=== PATIENT | female | born 1930 | race African-American/Black ===

== ENCOUNTER 2016-06-29 14:18 | Emergency (ER) | payer OTHER, MEDICAID ==
[~2016-06-29] VITALS: Ht 170.2 cm; Wt 80.0 kg
[~2016-06-29 14:18] MED LIST: ACET325S8 PO; BEDSMIS4; BISA10SU8 PR; CARV3.125 PO; ECOT81TA2 PO; LISI20 PO; MAGN30S PO; NIFE1TAB85 PO; ROSU40 PO; WARF2.5 PO
[2016-06-29 14:21] VITALS: BP 143/93; PULSE 70; RESP 14; O2SAT 99
[2016-06-29 16:37] VITALS: BP 169/72; PULSE 63; RESP 18; O2SAT 99
[2016-06-29 18:00] VITALS: BP 168/72; PULSE 64; RESP 16; O2SAT 98
[2016-06-29] MEDS ORDERED: SODIUM CHLOR 0.9% 1000 ML INJ 1,000 ML IV SCH (18:10)
[2016-06-29] MEDS ORDERED: COUM5TAB PO (18:13)
[2016-06-29] MEDS ORDERED: ASPI1TAB91 PO (18:13)
[2016-06-29] MEDS ORDERED: MIRA33504 PO (18:13)
[2016-06-29] MEDS ORDERED: CARV6.25 PO (18:13)
[2016-06-29] MEDS ORDERED: COUM4TAB PO (18:13)
[2016-06-29] MEDS ORDERED: LISI-515 PO (18:13)
[2016-06-29] MEDS ORDERED: ROSU40 PO (18:13)
[2016-06-29] MEDS ORDERED: NIFE1TAB85 PO (18:13)
[2016-06-29] MEDS ORDERED: SODIUM CHLORIDE 0.9% FLUSH 5 ML FLUSH IVF PRN (18:15)
[2016-06-29] MEDS ORDERED: MORPHINE SULFATE 4 MG/ML INJ IV PUSH ONE (18:15)
[2016-06-29] MEDS ORDERED: ONDANSETRON HCL 4 MG/2 ML VIAL IVP ONE (18:15)
--- NOTE | 2016-06-29 19:02 | PD ---
HPI Chief Complaint: Abdominal Pain Time Seen by Provider: 17:59 Travel History International Travel<30 days: No Contact w/Intl Traveler<30days: No Traveled to known affect area: No History of Present Illness HPI Patient is a pleasant 85-year-old female with history of CVA with baseline left- sided weakness, hypertension, hyperlipidemia, history of 3 back surgeries performed in the 70s; presents to emergency room with her daughter and caregiver for evaluation of abdominal pain. Patient's daughter reports that patient has been having increased lower abdominal pain for the past few days. Reports that every time she goes to move patient, patient grimaces, reports that she has also noticed that patient has complaining of increased left-sided hip pain. Denies any recent falls or trauma. Reports no fevers or chills. Reports that patient has been eating and drinking like her normal self. Patient did have a normal bowel movement today as patient's daughter gave her MiraLAX today. Reports concern for possible urinary tract infection as patient' s urine appears dark. Reports the patient is a poor historian at baseline, reports increased concern for lower abdominal pain. PFSH Past Medical History Arthritis: No Asthma: No Autoimmune Disease: No Anxiety: No Depression: No Heart Rhythm Problems: No Cancer: No Cardiovascular Problems: Yes (cardiomyopathy, grade 1 diastolic dysfunction, hypercholesterolemia) High Cholesterol: Yes Chemotherapy: No Chest Pain: No Congestive Heart Failure: No COPD: No Cerebrovascular Accident: Yes Diabetes: No Diminished Hearing: No Endocrine: No Gastrointestinal Disorders: No Genitourinary: No Heparin Induced Thrombocytopen: No Hypertension: Yes Immune Disorder: No Implanted Vascular Access Dvce: No Kidney Stones: No Musculoskeletal: Yes Neurologic: No Psychiatric: No Reproductive: No Respiratory: No Radiation Therapy: No Renal Failure: No Sickle Cell Disease: No Sleep Apnea: No Thyroid Disease: No Tetanus Vaccination: Unknown ?: Not Past Surgical History Abdominal Surgery: No AICD: No Arteriovenous Shunt: No Cardiac Surgery: No Ear Surgery: No Endocrine Surgery: No Eye Surgery: No Genitourinary Surgery: No Gynecologic Surgery: No Insulin Pump: No Joint Replacement: No Neurologic Surgery: Yes (INJURY TO LOWER SPINE, BACK SX X 3) Oral Surgery: No Pacemaker: No Thoracic Surgery: No Other Surgery: Yes (BACK SURGERY 1968 AND 1973/ ) Social History Alcohol Use: No Tobacco Use: No Substance Use: No Allergies-Medications (Allergen,Severity, Reaction): Coded Allergies: No Known Allergies (Unverified , 06/29/16) Reported Meds & Prescriptions Reported Meds & Active Scripts Active Reported Miralax Powder (Polyethylene Glycol 3350 Powder) 17 Gm Powd 17 Gm PO DAILY PRN Mix and dissolve one measuring cap-ful (17 grams) in water or juice. Coumadin (Warfarin) 4 Mg Tab 4 Mg PO SUTUWETHSA Take 1 tablet (4mg) on Monday,Monday,Monday, and Monday Coumadin (Warfarin) 5 Mg Tab 5 Mg PO MOFR Take 1 tablet (5mg) on Monday and Monday Crestor (Rosuvastatin Calcium) 40 Mg Tab 40 Mg PO HS Procardia XL (Nifedipine) 30 Mg Tab 30 Mg PO DAILY Lisinopril 20 Mg Tab 20 Mg PO DAILY Coreg (Carvedilol) 6.25 Mg Tab 6.25 Mg PO BID Aspirin Adult Low Strength (Aspirin) 81 Mg Tabdr 81 Mg PO DAILY Review of Systems General / Constitutional: No: Fever Eyes: No: Visual changes HENT: No: Headaches Cardiovascular: No: Chest Pain or Discomfort Respiratory: No: Shortness of Breath Gastrointestinal: Positive: Abdominal Pain, No: Nausea, Vomiting, Diarrhea Genitourinary: No: Urgency, Frequency, Dysuria Musculoskeletal: Positive: Pain (left-sided hip pain) Skin: No Rash Neurologic: No: Weakness Psychiatric: No: Depression Endocrine: No: Polydipsia Hematologic/Lymphatic: No: Easy Bruising Physical Exam Exam Limitations: Poor Historian Narrative GENERAL: No acute distress, nontoxic SKIN: Warm and dry. HEAD: Atraumatic. Normocephalic. EYES: No injection or drainage. ENT: No nasal bleeding or discharge. Mucous membranes pink and moist. NECK: Trachea midline. No JVD. CARDIOVASCULAR: Regular rate and rhythm. No murmur appreciated. RESPIRATORY: No accessory muscle use. Clear to auscultation. Breath sounds equal bilaterally. GASTROINTESTINAL: Abdomen soft, patient with increased tenderness to lower abdomen with no rebound or guarding on exam MUSCULOSKELETAL: No obvious deformities. No clubbing. No cyanosis. No edema. Patient with normal range of motion to left hip as well as right hip, no obvious deformities or pain with range of motion NEUROLOGICAL: Patient with left-sided deficits at baseline Data Data Last Documented VS Vital Signs Date Time Temp Pulse Resp B/P Pulse Ox O2 Delivery O2 Flow Rate FiO2 06/29/16 20:59 83 18 175/77 100 Room Air Orders Complete Blood Count With Diff (06/29/16 18:10) Comprehensive Metabolic Panel (06/29/16 18:10) Lipase (06/29/16 18:10) Prothrombin Time / Inr (Pt) (06/29/16 18:10) Act Partial Throm Time (Ptt) (06/29/16 18:10) Urinalysis - C+S If Indicated (06/29/16 18:10) Ct Abd/Pel W Iv Contrast(Rout) (06/29/16 18:10) Iv Access Insert/Monitor (06/29/16 18:10) NPO (06/29/16 18:10) Morphine Inj (Morphine Inj) (06/29/16 18:15) Ondansetron Inj (Zofran Inj) (06/29/16 18:15) Sodium Chlor 0.9% 1000 Ml Inj (Ns 1000 M (06/29/16 18:10) Sodium Chloride 0.9% Flush (Ns Flush) (06/29/16 18:15) Chest, Single Ap (06/29/16 18:10) Hip, Uni(Ap&Lat) W Ap Pelvis (06/29/16 ) Urine Culture (06/29/16 18:20) Ceftriaxone Inj (Rocephin Inj) (06/29/16 20:15) Iohexol 350 Inj (Omnipaque 350 Inj) (06/29/16 20:50) Labs Laboratory Tests Test 06/29/16 18:20 White Blood Count 8.6 TH/MM3 Red Blood Count 4.64 MIL/MM3 Hemoglobin 12.4 GM/DL Hematocrit 38.2 % Mean Corpuscular Volume 82.3 FL Mean Corpuscular Hemoglobin 26.7 PG Mean Corpuscular Hemoglobin 32.5 % Concent Red Cell Distribution Width 15.1 % Platelet Count 222 TH/MM3 Mean Platelet Volume 9.1 FL Neutrophils (%) (Auto) 66.6 % Lymphocytes (%) (Auto) 20.1 % Monocytes (%) (Auto) 10.8 % Eosinophils (%) (Auto) 1.9 % Basophils (%) (Auto) 0.6 % Neutrophils # (Auto) 5.7 TH/MM3 Lymphocytes # (Auto) 1.7 TH/MM3 Monocytes # (Auto) 0.9 TH/MM3 Eosinophils # (Auto) 0.2 TH/MM3 Basophils # (Auto) 0.1 TH/MM3 CBC Comment DIFF FINAL Differential Comment Prothrombin Time 30.7 SEC Prothromb Time International 2.7 RATIO Ratio Activated Partial 43.9 SEC Thromboplast Time Urine Color YELLOW Urine Turbidity HAZY Urine pH 6.0 Urine Specific [place] 1.030 Urine Protein 30 mg/dL Urine Glucose (UA) NEG mg/dL Urine Ketones NEG mg/dL Urine Occult Blood NEG Urine Nitrite NEG Urine Bilirubin NEG Urine Urobilinogen 2.0 MG/DL Urine Leukocyte Esterase TRACE Urine RBC 3 /hpf Urine WBC 8 /hpf Urine Squamous Epithelial 15 /hpf Cells Urine Hyaline Casts 1 /lpf Urine Mucus FEW /lpf Microscopic Urinalysis Comment CULTURE INDICATED Sodium Level 143 MEQ/L Potassium Level 4.2 MEQ/L Chloride Level 108 MEQ/L Carbon Dioxide Level 28.0 MEQ/L Anion Gap 7 MEQ/L Blood Urea Nitrogen 15 MG/DL Creatinine 0.67 MG/DL Estimat Glomerular Filtration 102 ML/MIN Rate Random Glucose 74 MG/DL Calcium Level 8.4 MG/DL Total Bilirubin 0.4 MG/DL Aspartate Amino Transf 26 U/L (AST/SGOT) Alanine Aminotransferase 21 U/L (ALT/SGPT) Alkaline Phosphatase 81 U/L Total Protein 6.9 GM/DL Albumin 2.9 GM/DL Lipase 176 U/L [facility] Medical Decision Making Medical Screen Exam Complete: Yes Emergency Medical Condition: Yes Interpretation(s) Vital Signs Date Time Temp Pulse Resp B/P Pulse Ox O2 Delivery O2 Flow Rate FiO2 06/29/16 18:00 64 16 168/72 98 Room Air 06/29/16 16:37 63 18 169/72 99 Room Air 06/29/16 14:21 70 14 143/93 99 Room Air Differential Diagnosis Colitis, appendicitis, diverticulitis, UTI, hip fracture, dehydration, electrolyte abnormality Narrative Course Patient is an 85-year-old female who presents to emergency room with her daughter and caregiver with complaints of lower abdominal pain which has been ongoing for the past few days. Reports that patient has been grimacing every time she goes to move patient. Unable to verbalize how she feels. Vital signs are stable at this time. Labs as well as UA and CAT scan of the abdomen and pelvis ordered for further evaluation of symptoms. X-ray of the hip ordered as daughter reports that patient has been complaining of left-sided hip pain. Plan to give patient IV fluids and monitor patient Patient reevaluated, patient comfortable at this time. I reviewed all labs and all studies with patient and her daughter. Patient does have a urinary tract infection, will give a dose of IV Rocephin at this time. CT of the abdomen and pelvis pending. WBC 8.6 Hemoglobin 12.4 Hematocrit 38.2 Platelets 222 Sodium 143 Chloride 108 Potassium 4.2 Carbon dioxide 28 BUN 15 Creatinine 0.67 Lipase 176 PTT 30.7 INR 2.7 UA: Hazy urine, positive for protein, positive for trace leuk esterase, 8 white blood cells, 3 red blood cells, 15 epithelial cells Last Impressions Chest X-Ray 06/29/16 1810 Signed Impressions: Service Date/Time: Wednesday, June 29, 2016 19:04 - CONCLUSION: No acute disease. Yannick Sun MD Hip and Pelvis X-Ray 06/29/16 0000 Signed Impressions: Service Date/Time: Wednesday, June 29, 2016 19:04 - CONCLUSION: Mild osteoarthritis of each hip. No acute bony abnormality. Yannick Sun MD CT of the abdomen and pelvis reviewed with patient and her daughter. Copies of patient's studies were given to her daughter and patient and all incidental findings were reviewed. Patient with urinary tract infection, discussed signs and symptoms of when to return to the emergency room. Patient will follow up with cultures from today. Understands need to follow up with primary care doctor first thing in the morning. She will bring a copy of her studies to her doctor's office for follow-up Diagnosis Primary Impression: UTI (urinary tract infection) Qualified Code: N30.01 - Acute cystitis with hematuria Additional Impressions: Abdominal pain Qualified Code: R10.30 - Lower abdominal pain Osteoarthritis Qualified Code: M16.12 - Osteoarthritis of left hip, unspecified osteoarthritis type Diverticulosis Renal cyst Patient Instructions: General Instructions Additional Instructions: Please provide patient with a copy of her lab work and studies at discharge Please follow-up with your primary care doctor Please return to emergency room as needed Please take all antibiotics until completion, please follow up with cultures from today Med/Other Pt SpecificInfo: Prescription(s) given Scripts Nitrofurantoin Monohydrate Macrocrystals (Macrobid)100 Mg [id number] Mg PO BID 10 Days Ref 0 Prov:Edwige Fry DO 06/29/16 Disposition: 01 DISCHARGE HOME Condition: Stable Edwige Fry DO Jun 29, 2016 19:02
[2016-06-29 19:18] LABS: AUTOMATED NEUTROPHIL # 5.7 TH/MM3 (1.8-7.7); BASOPHIL # 0.1 TH/MM3 (0-0.2); BASOPHIL % 0.6 % (0.0-2.0); EOSINOPHIL # 0.2 TH/MM3 (0-0.4); EOSINOPHIL % 1.9 % (0.0-4.0); HEMATOCRIT 38.2 % (35.0-46.0); HEMO FLAGS DIFF FINAL; LYMPH % 20.1 % (9.0-44.0); LYMPHOCYTE # 1.7 TH/MM3 (1.0-4.8); MEAN CELL VOLUME 82.3 FL (80.0-100.0); MEAN CORPUSCULAR HEMOGLOBIN 26.7 PG (27.0-34.0); MEAN CORPUSCULAR HGB CONC 32.5 % (32.0-36.0); MONO % 10.8 % (0.0-8.0); NEUT % 66.6 % (16.0-70.0); PLATELET COUNT 222 TH/MM3 (150-450); RED BLOOD COUNT 4.64 MIL/MM3 (4.00-5.30); RED CELL DISTRIBUTION WIDTH 15.1 % (11.6-17.2); WHITE BLOOD COUNT 8.6 TH/MM3 (4.0-11.0)
[2016-06-29 19:23] LABS: BLOOD, URINE NEG (NEG); COMMENT (UR) CULTURE INDICATED; CULTURE IF INDICATED CULTURE INDICATED; GLUCOSE,URINE NEG (NEG); HYALINE CAST, URINE 1 /lpf (RARE); KETONE, URINE NEG (NEG); MUCUS URINE FEW /lpf (OCC); NITRITE,URINE NEG (NEG); SQUAMOUS EPITHELIAL CELL URINE 15 /hpf (0-5); URINE COLOR YELLOW (YELLW/STRAW)
[2016-06-29 19:31] LABS: APTT (PATIENT) 43.9 SEC (24.3-30.1); INTERNATIONAL NORMALIZED RATIO 2.7 RATIO; PROTHROMBIN TIME - PATIENT 30.7 SEC (9.8-11.6)
--- NOTE | 2016-06-29 19:42 | RADRPT ---
EXAM DATE/TIME: 06/29/2016 19:04 [facility] COMPARISON: No previous studies available for comparison. INDICATIONS : Left hip pain from unknown injury. MEDICAL HISTORY : Stroke. Arthritis. SURGICAL HISTORY : None. ENCOUNTER: Initial ACUITY: 1 day PAIN SCORE: 6/10 LOCATION: Left hip FINDINGS: Examination of the left hip was performed with AP Pelvis. The mild degenerative change left hip. No fracture. Enthesopathy is seen bilaterally. The acetabulum is grossly intact. CONCLUSION: Mild osteoarthritis of each hip. No acute bony abnormality. Yannick Sun MD on June 29, 2016 at 19:39 Board Certified Radiologist. This report was verified electronically.
--- NOTE | 2016-06-29 19:42 | RADRPT ---
EXAM DATE/TIME: 06/29/2016 19:04 [facility] COMPARISON: CHEST SINGLE AP, July 09, 2014, 10:08. INDICATIONS : Short of breath. MEDICAL HISTORY : Stroke. SURGICAL HISTORY : None. ENCOUNTER: Initial ACUITY: 1 day PAIN SCORE: 0/10 LOCATION: Bilateral chest FINDINGS: A single view of the chest demonstrates the lungs to be symmetrically aerated without evidence of mas s, infiltrate or effusion. The cardiomediastinal contours are unremarkable. Osseous structures are intact. CONCLUSION: No acute disease. Yannick Sun MD on June 29, 2016 at 19:40 Board Certified Radiologist. This report was verified electronically.
[2016-06-29 19:44] LABS: ANION GAP 7 MEQ/L (5-15); AST (GOT) 26 U/L (15-37); BLOOD UREA NITROGEN 15 MG/DL (7-18); CHLORIDE 108 MEQ/L (98-107); GLOMERULAR FILTRATION RATE 102 ML/MIN (>89); POTASSIUM 4.2 MEQ/L (3.5-5.1); SODIUM (NA) 143 MEQ/L (136-145)
[2016-06-29 19:47] LABS: ALKALINE PHOSPHATASE 81 U/L (45-117); ALT (GPT) 21 U/L (10-53); TOTAL BILIRUBIN ADULT 0.4 MG/DL (0.2-1.0)
[2016-06-29] MEDS ORDERED: cefTRIAXone INJ 1,000 MG in SODIUM CHLORIDE 0.9% INJ 100 ML IV ONE (20:15)
[2016-06-29] MEDS ORDERED: IOHEXOL 350 MG/ML 10 ML VIAL (for RAD DIAG) IV ONE (20:50)
[2016-06-29 20:59] VITALS: BP 175/77; PULSE 83; RESP 18; O2SAT 100
--- NOTE | 2016-06-29 21:03 | RADRPT ---
EXAM DATE/TIME: 06/29/2016 20:29 [facility] COMPARISON: No previous studies available for comparison. INDICATIONS : Lower abdomen pain for two days. IV CONTRAST: 90 cc Omnipaque 350 (iohexol) IV ORAL CONTRAST: No oral contrast ingested. RADIATION DOSE: 13.48 CTDIvol (mGy) MEDICAL HISTORY : Stroke. Hypertension. SURGICAL HISTORY : None. ENCOUNTER: Initial ACUITY: 2 days PAIN SCALE: 7/10 LOCATION: Bilateral lower quadrant TECHNIQUE: Volumetric scanning of the abdomen and pelvis was performed. Using automated exposure control and ad justment of the mA and/or kV according to patient size, radiation dose was kept as low as reasonably achievable to obtain optimal diagnostic quality images. FINDINGS: LOWER LUNGS: The visualized lower lungs are clear. LIVER: Homogeneous density without lesion. There is no dilation of the biliary tree. No calcified gallston es. SPLEEN: Normal size without lesion. PANCREAS: Within normal limits. KIDNEYS: Normal in size and shape. There is no mass, stone or hydronephrosis. Multiple left-sided renal cysts . ADRENAL GLANDS: Within normal limits. VASCULAR: There is no aortic aneurysm. Scattered atherosclerotic changes. BOWEL/MESENTERY: Scattered diverticulosis. Normal appendix. There is no free intraperitoneal air or fluid. ABDOMINAL WALL: Bulging and anterior abdominal wall. A small fat-containing umbilical hernia.. RETROPERITONEUM: There is no lymphadenopathy. BLADDER: No wall thickening or mass. REPRODUCTIVE: Uterus slightly prominent. INGUINAL: There is no lymphadenopathy or hernia. MUSCULOSKELETAL: Postsurgical changes lower lumbar spine and lumbosacral junction. CONCLUSION: 1. Scattered diverticulosis without diverticulitis. 2. Multiple left-sided renal cysts. 3. Uterus is slightly prominent may be related to fibroids. Yannick Sun MD on June 29, 2016 at 20:58 Board Certified Radiologist. This report was verified electronically.
[2016-06-29] MEDS ORDERED: MACR100C2 PO (21:23)
[2016-06-29] MEDS ORDERED: ACETAMINOPHEN 325 MG TAB PO ONE (22:00)
[2016-06-29 22:18] VITALS: BP 167/80
== END 2016-06-29 22:19 | disposition home or self-care (01) ==
LOC: NEPA 14:18
DX: N30.01 Acute cystitis with hematuria (principal); R10.30 Lower abdominal pain, unspecified; M16.12 Unilateral primary osteoarthritis, left hip; K57.90 Diverticulosis of intestine, part unspecified, without perforation or abscess without bleeding; N28.1 Cyst of kidney, acquired; I10 Essential (primary) hypertension; E78.5 Hyperlipidemia, unspecified; Z86.79 Personal history of other diseases of the circulatory system; Z86.69 Personal history of other diseases of the nervous system and sense organs; Z87.39 Personal history of other diseases of the musculoskeletal system and connective tissue
CPT/HCPCS: 71010; 73502; 74177; 80053; 81001; 83690; 85025; 85610; 85730; 87086; 96374; 99284; J0696; J7030; Q9967

== ENCOUNTER 2016-09-23 12:06 | Observation (INO) | payer OTHER, MEDICAID ==
[~2016-09-23] VITALS: Ht 170.2 cm; Wt 75.0 kg
[2016-09-23] VITALS (7 sets, daily range): BP systolic 140–176; BP diastolic 68–118; PULSE 75–85; RESP 16–20; TEMP 98.6–100.5; O2SAT 96–100
[~2016-09-23 12:06] MED LIST changes: -ACET325S8 PO; +ASPI1TAB91 PO; -BEDSMIS4; -BISA10SU8 PR; -CARV3.125 PO; +CARV6.25 PO; +COUM4TAB PO; +COUM5TAB PO; -ECOT81TA2 PO; +LISI-515 PO; -LISI20 PO; +MACR100C2 PO; -MAGN30S PO; +MIRA33504 PO; -WARF2.5 PO
[2016-09-23] MEDS ORDERED: SODIUM CHLORIDE 0.9% FLUSH 10 ML FLUSH IVF PRN (12:30)
[2016-09-23 12:38] LABS: AUTOMATED NEUTROPHIL # 8.8 TH/MM3 (1.8-7.7); BASOPHIL # 0.1 TH/MM3 (0-0.2); BASOPHIL % 0.6 % (0.0-2.0); EOSINOPHIL # 0.1 TH/MM3 (0-0.4); EOSINOPHIL % 0.8 % (0.0-4.0); HEMATOCRIT 41.5 % (35.0-46.0); LYMPHOCYTE # 1.4 TH/MM3 (1.0-4.8); MEAN CORPUSCULAR HEMOGLOBIN 26.2 PG (27.0-34.0); MEAN CORPUSCULAR HGB CONC 32.4 % (32.0-36.0); MONO % 8.2 % (0.0-8.0); NEUT % 78.4 % (16.0-70.0); PLATELET COUNT 265 TH/MM3 (150-450); RED BLOOD COUNT 5.12 MIL/MM3 (4.00-5.30); RED CELL DISTRIBUTION WIDTH 15.3 % (11.6-17.2); WHITE BLOOD COUNT 11.3 TH/MM3 (4.0-11.0)
[2016-09-23 12:45] LABS: HEMO FLAGS AUTO DIFF
--- NOTE | 2016-09-23 12:59 | RADRPT ---
EXAM DATE/TIME: 09/23/2016 12:35 [facility] COMPARISON: CHEST SINGLE AP, June 29, 2016, 19:04. INDICATIONS : Patient was vomiting this morning and has abdominal pain. MEDICAL HISTORY : Stroke. Arthritis. SURGICAL HISTORY : None. ENCOUNTER: Initial ACUITY: 1 day PAIN SCORE: 0/10 LOCATION: Bilateral chest FINDINGS: A single view of the chest demonstrates the lungs to be symmetrically aerated without evidence of mas s, infiltrate or effusion. The heart size is borderline enlarged. Osseous structures are intact. CONCLUSION: No acute disease. Stevo Díaz MD on September 23, 2016 at 12:57 Board Certified Radiologist. This report was verified electronically.
[2016-09-23 13:05] LABS: POTASSIUM 4.2 MEQ/L (3.5-5.1)
[2016-09-23 13:12] LABS: SCAN/DIFF AUTO DIFF CONFIRMED
--- NOTE | 2016-09-23 14:34 | PD ---
HPI Chief Complaint: Syncope/Near-Syncope Time Seen by Provider: 12:11 Travel History International Travel<30 days: No Contact w/Intl Traveler<30days: No Traveled to known affect area: No History of Present Illness HPI 85-year-old female who arrives by EMS. She vomited at her GROUP HOME and then became unresponsive per EMS which. This lasted a few seconds. She woke up and was alert and oriented 3 with nausea however was otherwise without complaint per EMS. In the ER she offers no complaint however notes it is very atypical for her to vomit. No CP/SOB. No fever/cough. PFSH Past Medical History Arthritis: No Asthma: No Autoimmune Disease: No Anxiety: No Depression: No Heart Rhythm Problems: No Cancer: No Cardiovascular Problems: Yes (cardiomyopathy, grade 1 diastolic dysfunction, hypercholesterolemia) High Cholesterol: Yes Chemotherapy: No Chest Pain: No Congestive Heart Failure: No COPD: No Cerebrovascular Accident: Yes Diabetes: No Diminished Hearing: No Endocrine: No Gastrointestinal Disorders: No Genitourinary: No Heparin Induced Thrombocytopen: No Hypertension: Yes Immune Disorder: No Implanted Vascular Access Dvce: No Kidney Stones: No Musculoskeletal: Yes Neurologic: No Psychiatric: No Reproductive: No Respiratory: No Radiation Therapy: No Renal Failure: No Sickle Cell Disease: No Sleep Apnea: No Thyroid Disease: No ?: Not Past Surgical History Abdominal Surgery: No AICD: No Arteriovenous Shunt: No Cardiac Surgery: No Ear Surgery: No Endocrine Surgery: No Eye Surgery: No Genitourinary Surgery: No Gynecologic Surgery: No Insulin Pump: No Joint Replacement: No Neurologic Surgery: Yes (INJURY TO LOWER SPINE, BACK SX X 3) Oral Surgery: No Pacemaker: No Thoracic Surgery: No Other Surgery: Yes (BACK SURGERY 1969 AND 2ND 1973/ 'S) Social History Alcohol Use: No Tobacco Use: No Substance Use: No Allergies-Medications (Allergen,Severity, Reaction): Coded Allergies: No Known Allergies (Unverified , 06/29/16) Reported Meds & Prescriptions Reported Meds & Active Scripts Active Macrobid (Nitrofurantoin Monoh/Nitrofur Macro) 100 Mg Cap 100 Mg PO BID 10 Days Reported Miralax Powder (Polyethylene Glycol 3350 Powder) 17 Gm Powd 17 Gm PO DAILY PRN Mix and dissolve one measuring cap-ful (17 grams) in water or juice. Coumadin (Warfarin) 4 Mg Tab 4 Mg PO SUTUWETHSA Take 1 tablet (4mg) on Monday,Monday,Monday, and Monday Coumadin (Warfarin) 5 Mg Tab 5 Mg PO MOFR Take 1 tablet (5mg) on Monday and Monday Crestor (Rosuvastatin Calcium) 40 Mg Tab 40 Mg PO HS Procardia XL (Nifedipine) 30 Mg Tab 30 Mg PO DAILY Lisinopril 20 Mg Tab 20 Mg PO DAILY Coreg (Carvedilol) 6.25 Mg Tab 6.25 Mg PO BID Aspirin Adult Low Strength (Aspirin) 81 Mg Tabdr 81 Mg PO DAILY Review of Systems Except as stated in HPI: all other systems reviewed are Neg Physical Exam Narrative GENERAL: 85 yo F, WNWD, pleasant NAD SKIN: Warm and dry. HEAD: Atraumatic. Normocephalic. EYES: Pupils equal and round. No scleral icterus. No injection or drainage. ENT: No nasal bleeding or discharge. Mucous membranes pink and moist. NECK: Trachea midline. No JVD. CARDIOVASCULAR: Regular rate and rhythm. RESPIRATORY: No accessory muscle use. Clear to auscultation. Breath sounds equal bilaterally. GASTROINTESTINAL: Abdomen soft, non-tender, nondistended. Hepatic and splenic margins not palpable. MUSCULOSKELETAL: Extremities without clubbing, cyanosis, or edema. No obvious deformities. NEUROLOGICAL: Awake and alert. No obvious cranial nerve deficits. Motor grossly within normal limits. Chronic LUE/LLE weakness. PSYCHIATRIC: Appropriate mood and affect; insight and judgment normal. Data Data Last Documented VS Vital Signs Date Time Temp Pulse Resp B/P Pulse Ox O2 Delivery O2 Flow Rate FiO2 09/23/16 13:52 77 16 176/76 100 09/23/16 12:17 98.6 VS reviewed Orders Electrocardiogram (09/23/16 12:20) Basic Metabolic Panel (Bmp) (09/23/16 12:20) Complete Blood Count With Diff (09/23/16 12:20) Urinalysis - C+S If Indicated (09/23/16 12:20) Ecg Monitoring (09/23/16 12:20) Iv Access Insert/Monitor (09/23/16 12:20) Oximetry (09/23/16 12:20) Sodium Chloride 0.9% Flush (Ns Flush) (09/23/16 12:30) B-Type Natriuretic Peptide (09/23/16 12:20) Troponin I (09/23/16 12:20) Chest, Single Ap (09/23/16 12:20) Ct Brain W/O Iv Contrast(Rout) (09/23/16 15:01) Admit Order (Ed Use Only) (09/23/16 15:01) Labs Laboratory Tests Test 09/23/16 12:30 White Blood Count 11.3 TH/MM3 Red Blood Count 5.12 MIL/MM3 Hemoglobin 13.4 GM/DL Hematocrit 41.5 % Mean Corpuscular Volume 81.0 FL Mean Corpuscular Hemoglobin 26.2 PG Mean Corpuscular Hemoglobin 32.4 % Concent Red Cell Distribution Width 15.3 % Platelet Count 265 TH/MM3 Mean Platelet Volume 8.4 FL Neutrophils (%) (Auto) 78.4 % Lymphocytes (%) (Auto) 12.0 % Monocytes (%) (Auto) 8.2 % Eosinophils (%) (Auto) 0.8 % Basophils (%) (Auto) 0.6 % Neutrophils # (Auto) 8.8 TH/MM3 Lymphocytes # (Auto) 1.4 TH/MM3 Monocytes # (Auto) 0.9 TH/MM3 Eosinophils # (Auto) 0.1 TH/MM3 Basophils # (Auto) 0.1 TH/MM3 CBC Comment AUTO DIFF Differential Comment AUTO DIFF CONFIRMED Sodium Level 140 MEQ/L Potassium Level 4.2 MEQ/L Chloride Level 106 MEQ/L Carbon Dioxide Level 28.0 MEQ/L Anion Gap 6 MEQ/L Blood Urea Nitrogen 10 MG/DL Creatinine 0.83 MG/DL Estimat Glomerular Filtration 79 ML/MIN Rate Random Glucose 139 MG/DL Calcium Level 8.6 MG/DL Troponin I 0.25 NG/ML B-Type Natriuretic Peptide 190 PG/ML MDM Medical Decision Making Medical Screen Exam Complete: Yes Emergency Medical Condition: Yes Medical Record Reviewed: Yes Differential Diagnosis Syncope, arrhythmia, UTI, NSTEMI/ACS, electrolyte imbalance Narrative Course CBC & BMP Diagram 09/23/16 12:30 Tn 0.25 BNP 190 EKG: sinus 77, LBBB stable compared to 07/06 Admission for serial enzymes. D/w Dr Bingham. Head CT added at time of admission per her request. Diagnosis Primary Impression: Syncope Qualified Code: R55 - Syncope, unspecified syncope type Additional Impression: Elevated troponin Admitting Information Admitting Physician Requests: Observation Agustin Hernandez MD Sep 23, 2016 14:34
[2016-09-23] MEDS ORDERED: NALOXONE HCL 0.4 MG/ML AMP IV PRN (15:45)
[2016-09-23] MEDS ORDERED: BISACODYL 10 MG SUPP RECTAL PRN (15:45)
[2016-09-23] MEDS ORDERED: ONDANSETRON HCL 4 MG/2 ML VIAL IVP PRN (15:45)
[2016-09-23] MEDS ORDERED: LACTULOSE SYRUP 20 GM/30 ML CUP PO PRN (15:45)
[2016-09-23] MEDS ORDERED: SENNOSIDES 8.6 MG TAB PO PRN (15:45)
[2016-09-23] MEDS ORDERED: MAGNESIUM HYDROXIDE SUSP 30 ML CUP PO PRN (15:45)
[2016-09-23] MEDS ORDERED: SODIUM CHLORIDE 0.9% FLUSH 10 ML FLUSH IV FLUSH PRN (15:45)
--- NOTE | 2016-09-23 16:38 | RADRPT ---
EXAM DATE/TIME: 09/23/2016 16:00 [facility] COMPARISON: CT BRAIN W/O CONTRAST, August 03, 2014, 17:04. INDICATIONS : Evaluate for syncope. RADIATION DOSE: 56.53 CTDIvol (mGy) MEDICAL HISTORY : Cardiovascular disease. Hypertension. SURGICAL HISTORY : Fusion, lumbar. ENCOUNTER: Initial ACUITY: 1 day PAIN SCALE: 3/10 LOCATION: Bilateral cranial TECHNIQUE: Multiple contiguous axial images were obtained of the head. Using automated exposure control and adj ustment of the mA and/or kV according to patient size, radiation dose was kept as low as reasonably a chievable to obtain optimal diagnostic quality images. FINDINGS: CEREBRUM: Coarse calcification is again identified in the left temporal lobe unchanged from 2015. No evidence o f acute intracranial hemorrhage, mass effect, or acute infarct. POSTERIOR FOSSA: The cerebellum and brainstem are intact. The 4th ventricle is midline. The cerebellopontine angle i s unremarkable. EXTRACRANIAL: The visualized portion of the orbits is intact. SKULL: The calvaria is intact. No evidence of skull fracture. CONCLUSION: Chronic left temporal lobe calcification. No acute intracranial findings. Rohit Mays MD on September 23, 2016 at 16:35 Board Certified Radiologist. This report was verified electronically.
[2016-09-23] MEDS ORDERED: ASPIRIN 325 MG TAB PO ONE (17:15)
--- NOTE | 2016-09-23 17:22 | HHI.HP ---
[facility] Unknown Admission Diagnosis Syncope, Elevated Tn Diagnoses: (1) TIA (transient ischemic attack) Diagnosis: Principal (2) Altered mental status Diagnosis: Principal Travel History International Travel<30 Days: No Contact w/Intl Traveler <30 Da: No Traveled to Known Affected Are: No History of Present Illness Mrs. Dixon is an 85-year-old female. She had 3 episodes today of altered mental status. 2 of these episodes were associated with nausea and vomiting. All the episodes had decreased ability to speak and weakness of the right side. She has a history of CVA and has a chronic left hemiplegia secondary to that. Additionally today she has some nasal bleeding. When seen in the ER she has returned to her baseline. Her baseline is not ambulatory. She is on Coumadin at baseline. Additional finding tonight isn't elevated troponin. She does not complain of any headache. Nosebleed has stopped. No nausea reported. She does not appear postictal when I see her. This does not appear to be a syncopal episode. More suspicious that she may have had a TIA or atypical seizure. No other neurological findings are reported. No visual changes, no change in her left hemiplegia, no vertigo. Review of Systems Constitutional: DENIES: Fatigue, Fever, Weight gain, Weight loss, Chills Eyes: DENIES: Blurred vision, Diplopia Respiratory: DENIES: Cough, Wheezing, Shortness of breath Cardiovascular: DENIES: Chest pain, Palpitations, Syncope Gastrointestinal: COMPLAINS OF: Nausea, Vomiting, DENIES: Abdominal pain, Black stools, Bloody stools, Diarrhea Musculoskeletal: DENIES: Joint pain, Muscle aches, Stiffness Integumentary: DENIES: Abnormal pigmentation Hematologic/lymphatic: DENIES: Bruising Immunologic/allergic: DENIES: Eczema Neurologic: DENIES: Abnormal gait, Headache Psychiatric: DENIES: Anxiety, Confusion Past Family Social History Past Medical History CVA Hypertension Hyperlipidemia Nonspecified cardiac disease Past Surgical History Back fusion 3 Reported Medications Reported Meds & Active Scripts Active Macrobid (Nitrofurantoin Monoh/Nitrofur Macro) 100 Mg Cap 100 Mg PO BID 10 Days Reported Miralax Powder (Polyethylene Glycol 3350 Powder) 17 Gm Powd 17 Gm PO DAILY PRN Mix and dissolve one measuring cap-ful (17 grams) in water or juice. Coumadin (Warfarin) 4 Mg Tab 4 Mg PO SUTUWETHSA Take 1 tablet (4mg) on Monday,Monday,Monday, and Monday Coumadin (Warfarin) 5 Mg Tab 5 Mg PO MOFR Take 1 tablet (5mg) on Monday and Monday Crestor (Rosuvastatin Calcium) 40 Mg Tab 40 Mg PO HS Procardia XL (Nifedipine) 30 Mg Tab 30 Mg PO DAILY Lisinopril 20 Mg Tab 20 Mg PO DAILY Coreg (Carvedilol) 6.25 Mg Tab 6.25 Mg PO BID Aspirin Adult Low Strength (Aspirin) 81 Mg Tabdr 81 Mg PO DAILY Allergies: Coded Allergies: No Known Allergies (Unverified , 06/29/16) Family History No disease in mother father Social History No history of alcohol, nicotine, or drug abuse. Patient lives with her daughter who is her card maker. Physical Exam Vital Signs Vital Signs Date Time Temp Pulse Resp B/P Pulse Ox O2 Delivery O2 Flow Rate FiO2 09/23/16 17:03 77 16 163/75 96 Room Air 09/23/16 13:52 77 16 176/76 100 09/23/16 13:51 75 16 176/77 09/23/16 12:17 98.6 85 16 174/118 Physical Exam GENERAL: NAD, A&Ox3 SKIN: Warm and dry. HEAD: Normocephalic. EYES: No scleral icterus. No injection or drainage. NECK: Supple, trachea midline. No JVD or lymphadenopathy. CARDIOVASCULAR: Regular rate and rhythm without murmurs, gallops, or rubs. RESPIRATORY: Breath sounds equal bilaterally. No accessory muscle use. GASTROINTESTINAL: Abdomen soft, non-tender, nondistended. MUSCULOSKELETAL: No cyanosis, or edema. NEURO: Chronic left hemiplegia is present. No deficit noted on right side. Laboratory Laboratory Tests Test 09/23/16 12:30 White Blood Count 11.3 Red Blood Count 5.12 Hemoglobin 13.4 Hematocrit 41.5 Mean Corpuscular Volume 81.0 Mean Corpuscular Hemoglobin 26.2 Mean Corpuscular Hemoglobin 32.4 Concent Red Cell Distribution Width 15.3 Platelet Count 265 Mean Platelet Volume 8.4 Neutrophils (%) (Auto) 78.4 Lymphocytes (%) (Auto) 12.0 Monocytes (%) (Auto) 8.2 Eosinophils (%) (Auto) 0.8 Basophils (%) (Auto) 0.6 Neutrophils # (Auto) 8.8 Lymphocytes # (Auto) 1.4 Monocytes # (Auto) 0.9 Eosinophils # (Auto) 0.1 Basophils # (Auto) 0.1 CBC Comment AUTO DIFF Differential Comment AUTO DIFF CONFIRMED Sodium Level 140 Potassium Level 4.2 Chloride Level 106 Carbon Dioxide Level 28.0 Anion Gap 6 Blood Urea Nitrogen 10 Creatinine 0.83 Estimat Glomerular Filtration 79 Rate Random Glucose 139 Calcium Level 8.6 Troponin I 0.25 B-Type Natriuretic Peptide 190 Result Diagram: 09/23/16 1230 09/23/16 1230 Assessment and Plan Problem List: (1) Altered mental status ICD Code: R41.82 Status: Acute (2) TIA (transient ischemic attack) ICD Code: G45.9 Status: Acute (3) Elevated troponin ICD Code: R74.8 Status: Acute Assessment and Plan Assessment and plan 85-year-old female admitted secondary to transient altered mental status, right- sided weakness, and inability to speak. Transient right hemiplegia Expressive aphasia Altered mental status Possible TIA versus seizure Aspirin CT scan of the brain shows no acute anomaly MRI of brain ordered EEG ordered Neurology consult monitor for recurrence of symptoms Intermittent neuro checks Hypertension Allow for elevation for now. If MRI is normal we'll resume home blood pressure treatments next Hyperlipidemia Continue statin Cholesterol levels in a.m. History of spinal fusion Chronic Left hemiplegia Global weakness Bedbound Supportive care DVT prophylaxis SCDs Agustin Moran MD Sep 23, 2016 5:22 pm
[2016-09-23] MEDS ORDERED: POLYETHYLENE GLYCOL 17 GM PKG PO PRN (17:30)
[2016-09-23] MEDS: SODIUM CHLORIDE 0.9% FLUSH 10 ML FLUSH IV FLUSH SCH (21:18)
[2016-09-23] MEDS: ATORVASTATIN 80 MG TAB PO SCH (21:19)
[2016-09-23] MEDS: NITROFURANTOIN MONOHYD MACROCR 100 MG CAP PO SCH (21:19)
[2016-09-23] MEDS: DOCUSATE SODIUM 50 MG/SENNA 8.6 MG TAB PO SCH (21:19)
[2016-09-24] VITALS (7 sets, daily range): BP systolic 119–157; BP diastolic 63–83; PULSE 68–94; RESP 18–20; TEMP 97.8–99.3; O2SAT 94–96
--- NOTE | 2016-09-24 | RADRPT ---
EXAM DATE/TIME: 09/23/2016 23:12 [facility] COMPARISON: No previous studies available for comparison. INDICATIONS : Cerebrovascular accident. MEDICAL HISTORY : Hypercholesterolemia. CVA. Cardiomyopathy. Grade 1 diastolic dysfunction. H yperlipidemia. HTN. SURGICAL HISTORY : Back surgery. ENCOUNTER: Initial ACUITY: 1 day PAIN SCORE: 0/10 LOCATION: Bilateral neck PEAK SYSTOLIC VELOCITIES (cm/sec): ICA/CCA RATIO: Right: 1.3 Left: 1.2 ICA: Right: 84 Left: 68 CCA: Right: 64 Left: 58 ECA: Right: 66 Left: 91 VERTEBRAL: Right: 31 antegrade Left: 74 antegrade Elevated flow velocities and ICA/CCA ratios have been found to correlate with increased degrees of vessel stenosis, calculated as percentage of diameter relative to a normal segment of distal ICA/CCA FINDINGS: Antegrade flow is seen in both vertebral arteries. There is mild atherosclerotic plaquing at the orig in of both ICAs without any significant stenosis. CONCLUSION: No evidence for hemodynamically significant stenosis. Sandhya Keene MD on September 23, 2016 at 23:58 Board Certified Radiologist. This report was verified electronically.
[2016-09-24 07:31] LABS: AUTOMATED NEUTROPHIL # 8.1 TH/MM3 (1.8-7.7); BASOPHIL # 0.1 TH/MM3 (0-0.2); BASOPHIL % 0.8 % (0.0-2.0); EOSINOPHIL # 0.1 TH/MM3 (0-0.4); EOSINOPHIL % 0.7 % (0.0-4.0); HEMATOCRIT 38.5 % (35.0-46.0); LYMPH % 17.9 % (9.0-44.0); LYMPHOCYTE # 2.1 TH/MM3 (1.0-4.8); MEAN CORPUSCULAR HGB CONC 34.2 % (32.0-36.0); MONO % 11.6 % (0.0-8.0); PLATELET COUNT 361 TH/MM3 (150-450); RED BLOOD COUNT 4.87 MIL/MM3 (4.00-5.30); RED CELL DISTRIBUTION WIDTH 16.2 % (11.6-17.2); WHITE BLOOD COUNT 11.7 TH/MM3 (4.0-11.0)
[2016-09-24 07:39] LABS: HEMO FLAGS AUTO DIFF
[2016-09-24 07:50] LABS: BICARBONATE 24.9 MEQ/L (21.0-32.0); POTASSIUM 3.9 MEQ/L (3.5-5.1)
[2016-09-24 07:52] LABS: HDL CHOLESTEROL 59.6 MG/DL (40.0-60.0)
[2016-09-24] MEDS: ASPIRIN EC 81 MG TABEC PO SCH (08:16)
[2016-09-24] MEDS: DOCUSATE SODIUM 50 MG/SENNA 8.6 MG TAB PO SCH ×2 (08:16→21:25)
[2016-09-24] MEDS: NITROFURANTOIN MONOHYD MACROCR 100 MG CAP PO SCH ×2 (08:16→21:25)
[2016-09-24] MEDS: SODIUM CHLORIDE 0.9% FLUSH 10 ML FLUSH IV FLUSH SCH ×2 (08:17→21:25)
[2016-09-24 08:37] LABS: ACANTHOCYTES OCC (NORMAL); OVALOCYTES 1+ (NORMAL)
[2016-09-24 08:38] LABS: PLATELET ESTIMATE SMEAR NORMAL (NORMAL); PLATELET MORPHOLOGY NORMAL (NORMAL); SCAN/DIFF AUTO DIFF CONFIRMED
--- NOTE | 2016-09-24 09:54 | RADRPT ---
EXAM DATE/TIME: 09/24/2016 09:02 [facility] COMPARISON: MRI BRAIN W/O CONTRAST, July 15, 2014, 11:03. INDICATIONS : Syncope. MEDICAL HISTORY : Hypercholesterolemia. Hypertension. Cardiovascular disease. Cerbrovascular disease. SURGICAL HISTORY : Fusion, lumbar. ENCOUNTER: Initial ACUITY: 3 day PAIN SCORE: 0/10 LOCATION: cranial TECHNIQUE: Multiplanar, multisequence MRI of the brain was performed without contrast. FINDINGS: CEREBRUM: The ventricles are normal for age. No evidence of midline shift, mass lesion, hemorrhage or acute in farction. No extraaxial fluid collections are seen. The pituitary gland and suprasellar cistern are normal in configuration. WHITE MATTER: Periventricular white matter hyperintensities indicating chronic ischemic change. POSTERIOR FOSSA: The cerebellum and brainstem are intact. The 4th ventricle is midline. The cerebellopontine angle is unremarkable. The cerebellar tonsils are normal in position. DIFFUSION IMAGING: No focal areas of restricted diffusion are seen. No evidence of acute infarction. EXTRACRANIAL: The visualized portions of the orbits and paranasal sinuses are unremarkable. CONCLUSION: Age-related findings. No acute intracranial findings. Rohit Mays MD on September 24, 2016 at 9:46 Board Certified Radiologist. This report was verified electronically.
[2016-09-24 11:08] LABS: INTERNATIONAL NORMALIZED RATIO 3.3 RATIO; PROTHROMBIN TIME - PATIENT 38.7 SEC (9.8-11.6)
--- NOTE | 2016-09-24 12:56 | HHI.PR ---
Subjective Remarks Follow-up for altered mental status. Patient is seen with her daughter/ caregiver at bedside. The patient has no acute complaints today. They did notice that the patient has some redness and swelling of her left lower jaw that is new overnight. The patient has been complaining of jaw pain recently according to her daughter. Apparently yesterday the patient had 3 episodes lasting about 5 minutes where she was having dry heaving and some right upper extremity weakness. No further episodes overnight. No further right-sided weakness. Left-sided weakness at baseline. The patient denies any chest pain or shortness of breath. Therefore dismaying quite a few years since she's had a stress test and they would be agreeable to proceed with one. Wheelchair bound at baseline. Objective Vitals Vital Signs Date Time Temp Pulse Resp B/P Pulse Ox O2 Delivery O2 Flow Rate FiO2 09/24/16 12:36 97.8 74 18 157/82 96 09/24/16 08:36 97.8 78 18 144/83 95 09/24/16 08:00 79 09/24/16 04:27 99.3 83 20 119/70 95 09/23/16 23:49 100.5 85 20 145/81 98 09/23/16 21:00 84 09/23/16 19:19 99.2 81 20 140/68 98 09/23/16 17:03 77 16 163/75 96 Room Air 09/23/16 13:52 77 16 176/76 100 09/23/16 13:51 75 16 176/77 Result Diagram: 09/24/16 0623 09/24/16 0623 Imaging Last Impressions Brain MRI 09/24/16 0000 Signed Impressions: Service Date/Time: Saturday, September 24, 2016 09:02 - CONCLUSION: Age-related findings. No acute intracranial findings. Rohit Mays MD Head CT 09/23/16 1501 Signed Impressions: Service Date/Time: Friday, September 23, 2016 16:00 - CONCLUSION: Chronic left temporal lobe calcification. No acute intracranial findings. Rohit Mays MD Chest X-Ray 09/23/16 1220 Signed Impressions: Service Date/Time: Friday, September 23, 2016 12:35 - CONCLUSION: No acute disease. Stevo Díaz MD Carotid Artery Ultrasound 09/23/16 0000 Signed Impressions: Service Date/Time: Friday, September 23, 2016 23:12 - CONCLUSION: No evidence for hemodynamically significant stenosis. Sandhya Keene MD Objective Remarks GENERAL: Well-developed well-nourished. Obese. In no acute distress. SKIN: Warm and dry. No lesions noted. HEENT: Normocephalic. Pupils equal and round. Mucous membranes pink and moist. Broken tooth on left lower jaw with some surrounding erythema, no TTP or fluctuance. CARDIOVASCULAR: Regular rate and rhythm. No murmur appreciated. RESPIRATORY: No accessory muscle use. Clear to auscultation. Breath sounds equal bilaterally. GASTROINTESTINAL: Abdomen soft, non-tender, nondistended. Bowel sounds x4. MUSCULOSKELETAL: No obvious deformities. No clubbing or cyanosis. No edema. NEUROLOGICAL: Awake and alert. Left-sided weakness. Moves right-sided extremities spontaneously. Normal speech. PSYCHIATRIC: Appropriate mood and affect; insight and judgment fair to normal. A/P Problem List: (1) Altered mental status ICD Code: R41.82 Status: Acute (2) TIA (transient ischemic attack) ICD Code: G45.9 Status: Acute (3) Elevated troponin ICD Code: R74.8 Status: Acute Assessment and Plan 85-year-old female admitted secondary to transient altered mental status, right- sided weakness, and inability to speak. Transient right hemiplegia Expressive aphasia Transient episodes of acute encephalopathy Reviewed: Brain MRI with age-related findings, nothing acute. Carotid ultrasound with no significant stenosis. Troponins elevated, but are not increasing. WBC 11.7. Tmax 100.5. Chest x-ray clear. Continue Aspirin, Coumadin, statin Check UA EEG ordered Troponins as below Neurology consulted monitor for recurrence of symptoms Neuro checks Check echocardiogram Suspect SIRS/Sepsis Fever with mildly elevated leukocytosis. Tachycardia could be suppressed by beta susy. Possible sepsis with dental abscess. Start antibiotics for dental abscess after UA collected Elevated troponins Reviewed: Troponin 0.25, 0.34, 0.27. EKG with NSR and LBBB, similar to previous EKG from 2015. Discussed with family and Dr. Moran, will proceed with stress test today On Coumadin with elevated INR INR 3.3 Hold Coumadin and monitor INR Hypertension S/P permissive hypertension Resume home BP medications with negative brain MRI Hyperlipidemia Lipid panel reviewed and within normal limits. Continue statin History of spinal fusion Chronic Left hemiplegia Global weakness Bedbound Supportive care DVT prophylaxis SCDs Discharge Planning Follow up results of above workup Bennie Hernandez Sep 24, 2016 12:56
[2016-09-24] MEDS ORDERED: REGADENOSON INJ 0.4 MG/5 ML SYR ONE (13:38)
--- NOTE | 2016-09-24 14:40 | EKG ---
Date Performed: 09/23/2016 Time Performed: 12:30:58 PTAGE: 85 years EKG: Sinus rhythm LEFT BUNDLE BRANCH BLOCK Compared to previous tracing, no significant change ABNORMAL ECG NO PREVIOUS TRACING DOCTOR: Roger Nails Interpretating Date/Time 09/24/2016 14:38:52
--- NOTE | 2016-09-24 15:21 | RADRPT ---
EXAM DATE/TIME: 09/24/2016 13:16 [facility] COMPARISON: No previous studies available for comparison. INDICATIONS : Mid chest pain with nausea and vomiting for one day. Angina. DOSE: 26.2 mCi Tc99m Myoview at stress. 8.7 mCi Tc99m Myoview at rest. 0.4 mg Lexiscan STRESS SYMPTOMS: Shortness of breath. EJECTION FRACTION: 28% MEDICAL HISTORY : Hypertension. Cerebrovascular disease. SURGICAL HISTORY : Fusion, lumbar. ENCOUNTER: Initial ACUITY: 1 day PAIN SCALE: 6/10 LOCATION: Midsternal chest TECHNIQUE: The patient underwent pharmacologic stress with infusion of prescribed dose. Continuous ECG tracing was monitored during stress. Gated SPECT imaging was performed after stress and conventional SPECT i maging was performed at rest. The examination was performed on a SPECT/CT scanner, both attenuation and non-corrected datasets were reviewed. FINDINGS: DISTRIBUTION: The maximum perfused segment at stress is in the lateral wall. PERFUSION STUDY: No reversible perfusion defects. Large fixed perfusion defect centered at the apex and involving the distal septal and inferior tay. GATED STUDY: Global hypokinesis. CONCLUSION: Abnormal ejection fraction with global hypokinesis. No reversible perfusion defects. RISK CATEGORY: 3-High Risk. Rohit Mays MD on September 24, 2016 at 15:17 Board Certified Radiologist. This report was verified electronically.
[2016-09-24] MEDS: LISINOPRIL 20 MG TAB PO SCH (15:33)
[2016-09-24] MEDS: NIFEdipine 30 MG SUSTAINED RELEASE TAB PO SCH (15:33)
[2016-09-24] MEDS ORDERED: WARFARIN SOD 4 MG TAB PO SCH (16:00)
[2016-09-24 16:45] LABS: BACTERIA, URINE RARE /hpf; BLOOD, URINE MOD (NEG); GLUCOSE,URINE NEG (NEG); GRANULAR CAST, URINE 1 /lpf; KETONE, URINE NEG (NEG); MUCUS URINE FEW /lpf (OCC); NITRITE,URINE NEG (NEG); SQUAMOUS EPITHELIAL CELL URINE 21 /hpf (0-5)
[2016-09-24 16:46] LABS: COMMENT (UR) CULT NOT INDICATED; CULTURE IF INDICATED CULT NOT INDICATED; URINE COLOR LIGHT-BROWN (YELLW/STRAW)
[2016-09-24] MEDS: ATORVASTATIN 80 MG TAB PO SCH (20:53)
[2016-09-24] MEDS: AMOXICILLIN/CLAVULANATE K 875 MG TAB PO SCH (21:25)
[2016-09-24] MEDS: CARVEDILOL 6.25 MG TAB PO SCH (21:25)
--- NOTE | 2016-09-24 21:27 | MG ---
cc: ADONIS JUAN MD Lab No: Date: 09/24/16 Age: 86Sex: F Race: REFERRING PHYSICIAN Dr. Moran MEDICAL HISTORY Unresponsive for a few seconds, history of cardiomyopathy, hypercholesteremia, stroke, hypertension, hyperlipidemia. MEDICATIONS 1. Aspirin. 2. Macrobid. DESCRIPTION OF PROCEDURE When the patient was awake at the beginning of the EEG recording the background activity was 8-9 Hz, located posteriorly. Attenuates to eye opening bilaterally and symmetrically. During the recording, the patient became drowsy with slowing and drop out of the posterior background rhythm replaced by 6-7 Hz. theta activity. The patient transitioned to stage II sleep with appearance of vertex wave, K complexes and sleep spindles. Photic stimulation did not elicit a driving response. Hyperventilation was not done. There were no electrographic seizures or epileptiform discharges noted in the recording. INTERPRETATION This is a normal awake and asleep EEG recording. Absence of electrographic seizures or epileptiform discharges does not exclude diagnosis of epilepsy. Clinical correlation is recommended. MD PEDRO Cee/ /9:13 PM /9:20 PM [email or web address]
[2016-09-25 00:20] VITALS: BP 131/61; PULSE 76; RESP 18; TEMP 98.5; O2SAT 99
[2016-09-25 04:34] VITALS: BP 134/73; PULSE 75; RESP 18; TEMP 98.7; O2SAT 96
--- NOTE | 2016-09-25 04:39 | MB ---
cc: ADONIS JUAN MD DATE OF CONSULTATION: 09/24/2016 REASON FOR CONSULTATION: Possible TIA with altered mental status HISTORY OF PRESENT ILLNESS: Ms. Dixon is an 85-year-old -Luxembourger female who is seen at [facility] emergency room with her daughter, who is her caregiver, and her granddaughter who are at the bedside, who report three episodes of altered mental status. Two of those episodes were associated with nausea and vomiting where her daughter describes the episode as "she looks like she is in a catatonic state." The patient is seen where she stares and eyes wide open. No facial twitches, no convulsions, but unable to respond that lasts very briefly and then the patient will come back. No foaming reported. No tongue biting or loss of sphincteral bladder, and no loss of muscle tone. There is reported some weakness on the right upper extremity. There is no history of seizures or recent head trauma. The patient has history of stroke in 2014 with residual right-sided weakness and she uses a walker for transportation. She has mild memory changes as per the daughter but essentially she takes care of herself, feeds herself. The patient is on Coumadin. As per the daughter the blood pressure went down to 84/60 by the EMS when they transported her mother. REVIEW OF SYSTEMS A 12-point review of systems is negative except for what is stated in the HPI. PAST MEDICAL HISTORY 1. Stroke with residual left-sided weakness. 2. Hypertension 3. Hyperlipidemia 4. Coronary artery disease. PAST SURGICAL HISTORY Back fusion x3. MEDICATIONS 1. Coumadin. 2. MiraLax 3. Crestor. 4. Procardia XL 5. Lisinopril 6. Coreg 7. Aspirin ALLERGIES: No known allergies. FAMILY HISTORY Not applicable. FAMILY HISTORY AND SOCIAL HISTORY Noncontributory SOCIAL HISTORY No alcohol, nicotine or drug abuse. The patient lives with her daughter who is her caregiver. PHYSICAL EXAMINATION General: Awake, alert, pleasant, not in acute distress. HEENT: Atraumatic, normocephalic. Intact hearing. Intact vision. Cardiovascular: Regular rate and rhythm. Respiratory: Clear to auscultation. No wheezes. Gastrointestinal: Soft abdomen. No tenderness. Musculoskeletal: No cyanosis or edema. Neuro: Awake, alert, oriented to time, person and place. No dysphasia. Left spastic hemiparesis, right side is normal. Cranial nerves II-XII are grossly intact, reflexes 1+ bilateral symmetrical. Plantars bilaterally downgoing. Sensation is intact bilateral throughout. [id number], [id number] are normal but for slowness on the left side because of the weakness. Psychological: Normal mood and affect DIAGNOSTIC IMAGING -Head CT scan revealed chronic left temporal lobe calcification, no acute intracranial findings. -Brain MRI without contrast revealed age-related findings, no acute intracranial abnormality. -Carotid ultrasound. No evidence of hemodynamically significant stenosis. DIAGNOSTIC IMPRESSION 1. Encephalopathy resolved. 2. TIA 3. Remote history of ischemic stroke with residual left-sided spastic hemiparesis. PLAN 1. Neuro checks q. 4 hourly. 2. EEG. 3. Fall precautions. 4. PT OT recommendations are appreciated. 5. Orthostatic vitals 6. Telemetry. 7. DVT prophylaxis. 8. GI prophylaxis. MD PEDRO Cee/CHERELLE /11:11 PM /3:54 AM HIP[facility]O
[2016-09-25 05:49] LABS: INTERNATIONAL NORMALIZED RATIO 2.3 RATIO; PROTHROMBIN TIME - PATIENT 26.6 SEC (9.8-11.6)
[2016-09-25 09:06] VITALS: BP 116/57; PULSE 79; RESP 16; TEMP 98.1; O2SAT 99
[2016-09-25] MEDS: AMOXICILLIN/CLAVULANATE K 875 MG TAB PO SCH (09:07)
[2016-09-25] MEDS: ASPIRIN EC 81 MG TABEC PO SCH (09:07)
[2016-09-25] MEDS: DOCUSATE SODIUM 50 MG/SENNA 8.6 MG TAB PO SCH (09:07)
[2016-09-25] MEDS: LISINOPRIL 20 MG TAB PO SCH (09:07)
[2016-09-25] MEDS: NIFEdipine 30 MG SUSTAINED RELEASE TAB PO SCH (09:07)
[2016-09-25] MEDS: CARVEDILOL 6.25 MG TAB PO SCH (09:07)
[2016-09-25] MEDS: SODIUM CHLORIDE 0.9% FLUSH 10 ML FLUSH IV FLUSH SCH (09:08)
[2016-09-25 09:10] VITALS: PULSE 70
--- NOTE | 2016-09-25 09:44 | HHI.PR ---
Subjective Remarks Follow-up for TIA. Daughter at bedside. No further acute episodes overnight. The patient has no complaints today. No further right upper extremity weakness. The patient's daughter is asking if I can resume PT/OT at home. She states that her sister has been managing well with her mother at home with no issues. The patient denies any further jaw pain. She's been tolerating diet. The patient's daughters state that she has been following with cardiology, Dr. Flores, for a "weak heart"and the patient has been following up for serial ultrasounds of her heart for this. The patient has been tolerating diet. Her PCP is Dr. Villeda, who monitors her INR. The patient's family denies any history of arrhythmia. Discussed at length with patient's other daughter/caregiver yesterday about the plan of care as well. Objective Vitals Vital Signs Date Time Temp Pulse Resp B/P Pulse Ox O2 Delivery O2 Flow Rate FiO2 09/25/16 09:10 70 09/25/16 09:06 98.1 79 16 116/57 99 09/25/16 04:34 98.7 75 18 134/73 96 09/25/16 00:20 98.5 76 18 131/61 99 09/24/16 20:57 83 09/24/16 19:24 98.1 94 18 134/63 94 09/24/16 16:15 98.2 68 18 120/74 95 09/24/16 12:36 97.8 74 18 157/82 96 I/O 09/24/16 09/24/16 09/24/16 09/25/16 09/25/16 09/25/16 07:00 15:00 23:00 07:00 15:00 23:00 Intake Total 240 ml Balance 240 ml Intake Oral 240 ml # Voids 3 1 1 # Bowel Movements 1 1 Result Diagram: 09/24/1623 09/24/1623 Imaging Last Impressions Myocardial Perfusion Scan Nuc Med 09/24/16 0000 Signed Impressions: Service Date/Time: Saturday, September 24, 2016 13:16 - CONCLUSION: Abnormal ejection fraction with global hypokinesis. No reversible perfusion defects. RISK CATEGORY: 3-High Risk. Rohit Mays MD Brain MRI 09/24/16 0000 Signed Impressions: Service Date/Time: Saturday, September 24, 2016 09:02 - CONCLUSION: Age-related findings. No acute intracranial findings. Rohit Mays MD Head CT 09/23/16 1501 Signed Impressions: Service Date/Time: Friday, September 23, 2016 16:00 - CONCLUSION: Chronic left temporal lobe calcification. No acute intracranial findings. Rohit Mays MD Chest X-Ray 09/23/16 1220 Signed Impressions: Service Date/Time: Friday, September 23, 2016 12:35 - CONCLUSION: No acute disease. Stevo Díaz MD Carotid Artery Ultrasound 09/23/16 0000 Signed Impressions: Service Date/Time: Friday, September 23, 2016 23:12 - CONCLUSION: No evidence for hemodynamically significant stenosis. Sandhya Keene MD Objective Remarks GENERAL: Well-developed well-nourished. Obese. In no acute distress. SKIN: Warm and dry. No lesions noted. HEENT: Normocephalic. Pupils equal and round. Mucous membranes pink and moist. Broken tooth on left lower jaw with some surrounding erythema, no TTP or fluctuance. CARDIOVASCULAR: Regular rate and rhythm. No murmur appreciated. RESPIRATORY: No accessory muscle use. Clear to auscultation. Breath sounds equal bilaterally. GASTROINTESTINAL: Abdomen soft, non-tender, nondistended. Bowel sounds x4. MUSCULOSKELETAL: No obvious deformities. No clubbing or cyanosis. No edema. NEUROLOGICAL: Awake and alert. Left-sided weakness. Moves right-sided extremities spontaneously. Normal speech. Strength 5/5 on the right and 23/5 on the left, at baseline. PSYCHIATRIC: Appropriate mood and affect; insight and judgment fair to normal. A/P Problem List: (1) Altered mental status ICD Code: R41.82 Status: Acute (2) TIA (transient ischemic attack) ICD Code: G45.9 Status: Acute (3) Elevated troponin ICD Code: R74.8 Status: Acute Assessment and Plan 85-year-old female admitted secondary to transient altered mental status, right- sided weakness, and inability to speak. Transient right hemiplegia Transient expressive aphasia Transient episodes of acute encephalopathy Resolved, back to neuro baseline Reviewed: Brain MRI with age-related findings, nothing acute. Carotid ultrasound with no significant stenosis. Troponins elevated, but are not increasing. WBC 11.7. Tmax 100.5, no further fevers. Chest x-ray clear. UA negative. EEG normal. Possible borderline diabetes. -Continue Aspirin, Coumadin, statin -Troponins as below -Neurology consulted, suspects TIA -monitor for recurrence of symptoms -Neuro checks -Diabetic education Suspect SIRS/Sepsis Fever with mildly elevated leukocytosis. Tachycardia could be suppressed by beta susy. Possible sepsis with dental abscess. Started on Augmentin for dental abscess and recommended to follow up with a dentist as outpatient Elevated troponins, suspect secondary to CHF Reviewed: Troponin 0.25, 0.34, 0.27. EKG with NSR and LBBB, similar to previous EKG from 2015. Stress test with decreased ejection fraction, but no ischemia Likely systolic congestive heart failure, chronic, stable - Family reports a history of a "weak heart" for which patient follows with cardiology, Dr. Flores Reviewed: Elevated but flat troponins. Depressed ejection fraction on Lexiscan. Not in exacerbation with clear chest x-ray and BNP 190. Echocardiogram pending, however patient can follow up with Dr. Flores for results On Coumadin with elevated INR INR 3.3. Coumadin held and INR 2.3. Decrease Coumadin to 4 mg daily and follow up with PCP Hypertension, controlled S/P permissive hypertension Continue home meds Hyperlipidemia Lipid panel reviewed and within normal limits. Continue statin History of spinal fusion Chronic Left hemiplegia Global weakness Bedbound Supportive care PT/OT, case management consult to resume HHC at home DVT prophylaxis SCDs Discharge Planning Likely discharge home with HHC later today Bennie Hernandez Sep 25, 2016 09:44 patient's family today, they asked if they could resume PT and OT at home. After discharge today, reportedly the family is asking for SNF placement. PT consult pending. steel manager is aware. Bennie Hernandez Sep 25, 2016 09:44
[2016-09-25] MEDS ORDERED: AMOX875T2 PO (09:46)
[2016-09-25] MEDS ORDERED: WARF-20 PO (09:46)
--- NOTE | 2016-09-25 09:51 | HHI.FF ---
Face to Face Verification Diagnosis: (1) Altered mental status (2) TIA (transient ischemic attack) (3) CVA (cerebral infarction) (4) Elevated troponin (5) Cardiomyopathy Physical Therapy Order: Evaluate and Treat, Improve ambulation, Strength and gait training Occupational Therapy Order: Evaluate and Treat Home Health Nursing Order: Medical education Signs/symptoms of disease process Diabetic education CHF education Medication education-adverse effect Nursing assessment with vital signs I have seen patient Santa Dixon on 09/25/16. My clinical findings support the need for the requested home health care services because: Ltd mobility - disease progression Deconditioned w/ increased weakness Med compliance is questionable Limited ability to care for self Impaired cognition/judgement High risk of falls I certify that my clinical findings support that this patient is homebound because: Unsteady gait/balance Unsafe to leave home unassisted [id number] bed/chair Unable to use public transportation Poor cardiac reserve Bennie Hernandez Sep 25, 2016 09:50
--- NOTE | 2016-09-25 10:16 | EC ---
Study Study Date:09/25/2016 STUDY CONCLUSIONS SUMMARY - Left ventricle: The cavity size was normal. There was moderate focal basal hypertrophy of the septum. Systolic function was moderately reduced. The estimated ejection fraction was in the range of 35% to 40%. Diffuse hypokinesis. Doppler parameters are consistent with abnormal left ventricular relaxation (grade 1 diastolic dysfunction). - Atrial septum: Poorly visualized. - Pulmonary arteries: PA peak pressure: 34mm Hg (S). If LV function is below 40, please consider prescribing an ACEI or ARB or document rationale for non-use. PROCEDURE DATA STUDY STATUS: Elective. Procedure: Transthoracic echocardiography. Image quality was suboptimal. The study was technically limited due to restricted patient mobility. Scanning was performed from the parasternal, apical, and subcostal acoustic windows. Study completion: The patient tolerated the procedure well. Transthoracic echocardiography. M-mode, complete 2D, complete spectral Doppler, and color Doppler. Patient status: Inpatient. CARDIAC ANATOMY LEFT VENTRICLE: The cavity size was normal. There was moderate focal basal hypertrophy of the septum. Systolic function was moderately reduced. The estimated ejection fraction was in the range of 35% to 40%. Diffuse hypokinesis. Doppler parameters are consistent with abnormal left ventricular relaxation (grade 1 diastolic dysfunction). AORTIC VALVE: Trileaflet; normal thickness, mildly calcified leaflets. Doppler: Transvalvular velocity was within the normal range. There was no stenosis. No regurgitation. AORTA: Aortic root: The aortic root was normal in size. MITRAL VALVE: Structurally normal valve. Doppler: Transvalvular velocity was within the normal range. There was no evidence for stenosis. Trace regurgitation. LEFT ATRIUM: The atrium was normal in size. ATRIAL SEPTUM: Poorly visualized. RIGHT VENTRICLE: The cavity size was normal. Wall thickness was normal. PULMONIC VALVE: Doppler: Transvalvular velocity was within the normal range. There was no evidence for stenosis. No regurgitation. TRICUSPID VALVE: Structurally normal valve. Doppler: Transvalvular velocity was within the normal range. Trace regurgitation. PULMONARY ARTERY: The main pulmonary artery was normal-sized. Systolic pressure was within the normal range. RIGHT ATRIUM: The atrium was normal in size. PERICARDIUM: There was no pericardial effusion. SYSTEMIC VEINS: Inferior vena cava: The vessel was normal in size. BASIC MEASUREMENTS ADULT Normal Left ventricle LV internal dimension, ED, chordal level, *40.6 mm 43-52 PLAX LV internal dimension, ES, chordal level, 36 mm 23-38 PLAX Fractional shortening, chordal level, PLAX *11 % >29 LV posterior wall thickness, ED 9.75 mm IVS/LVPW ratio, ED *1.81 <1.3 Ventricular septum Septal thickness, ED 17.6 mm Aortic valve Leaflet separation 16 mm 15-26 Right ventricle RV internal dimension, ED, PLAX 20.5 mm 19-38 BASIC MEASUREMENTS ADULT Normal Aortic valve Leaflet separation 16 mm 15-26 Aorta Root diameter, ED 32 mm 20-37 Left atrium Anterior-posterior dimension, ES 35 mm 19-40 LA/aortic root ratio 1.09 DOPPLER MEASUREMENTS ADULT Normal Main pulmonary artery Pressure, S *34 mm Hg =30 Mitral valve Peak E-wave velocity 50.3 cm/s Peak A-wave velocity 92.8 cm/s Peak E/A ratio 0.5 Tricuspid valve Regurgitant peak velocity 232 cm/s Peak RV-RA gradient, S 22 mm Hg Maximal regurgitant velocity 232 cm/s Systemic veins Estimated CVP 10 mm Hg Right ventricle RV pressure, S *34 mm Hg <30 LEGEND: Mean values are shown as u=mean value. Asterisk (*) lind values outside specified normal range. Prepared and signed by Justino Chavez [id number]
[2016-09-25 11:38] VITALS: BP 118/60; PULSE 68
--- NOTE | 2016-09-25 17:10 | HHI.DS ---
Discharge Summary Admission Date Sep 23, 2016 at 15:04 Discharge Date: Sep 25, 2016 Admitting Diagnosis Syncope, Elevated Tn (1) Altered mental status ICD Code: R41.82 Diagnosis: Principal (2) TIA (transient ischemic attack) ICD Code: G45.9 Diagnosis: Principal (3) Elevated troponin ICD Code: R74.8 Diagnosis: Secondary Procedures None Brief History - From Admission Mrs. Dixon is an 85-year-old female. She had 3 episodes today of altered mental status. 2 of these episodes were associated with nausea and vomiting. All the episodes had decreased ability to speak and weakness of the right side. She has a history of CVA and has a chronic left hemiplegia secondary to that. Additionally today she has some nasal bleeding. When seen in the ER she has returned to her baseline. Her baseline is not ambulatory. She is on Coumadin at baseline. Additional finding tonight isn't elevated troponin. She does not complain of any headache. Nosebleed has stopped. No nausea reported. She does not appear postictal when I see her. This does not appear to be a syncopal episode. More suspicious that she may have had a TIA or atypical seizure. No other neurological findings are reported. No visual changes, no change in her left hemiplegia, no vertigo. CBC/BMP: 09/24/16 0623 09/24/16 0623 Significant Findings Laboratory Tests Test 09/23/16 09/23/16 09/24/16 09/24/16 12:30 19:00 01:04 06:23 White Blood Count 11.3 TH/MM3 11.7 TH/MM3 (4.0-11.0) (4.0-11.0) Mean Corpuscular Hemoglobin 26.2 PG (27.0-34.0) Neutrophils (%) (Auto) 78.4 % (16.0-70.0) Monocytes (%) (Auto) 8.2 % (0.0-8.0) 11.6 % (0.0-8.0) Neutrophils # (Auto) 8.8 TH/MM3 8.1 TH/MM3 (1.8-7.7) (1.8-7.7) Estimat Glomerular Filtration 79 ML/MIN (>89) Rate Random Glucose 139 MG/DL 122 MG/DL (74-106) (74-106) Troponin I 0.25 NG/ML 0.34 NG/ML 0.34 NG/ML 0.27 NG/ML (0.02-0.05) (0.02-0.05) (0.02-0.05) (0.02-0.05) B-Type Natriuretic Peptide 190 PG/ML (0-100) Mean Corpuscular Volume 79.0 FL (80.0-100.0) Monocytes # (Auto) 1.4 TH/MM3 (0-0.9) Ovalocytes 1+ (NORMAL) Acanthocytes OCC (NORMAL) Test 09/24/16 09/24/16 09/25/16 10:43 16:06 03:50 Prothrombin Time 38.7 SEC 26.6 SEC (9.8-11.6) (9.8-11.6) Urine Color LIGHT-BROWN (YELLW/STRAW) Urine Turbidity HAZY (CLEAR) Urine Protein 300 mg/dL (NEG-TRACE) Urine Occult Blood MOD (NEG) Urine RBC 10 /hpf (0-3) Urine Bacteria RARE /hpf (NONE) Urine Mucus FEW /lpf (OCC) Imaging Last Impressions Myocardial Perfusion Scan Nuc Med 09/24/16 0000 Signed Impressions: Service Date/Time: Saturday, September 24, 2016 13:16 - CONCLUSION: Abnormal ejection fraction with global hypokinesis. No reversible perfusion defects. RISK CATEGORY: 3-High Risk. Rohit Mays MD Brain MRI 09/24/16 0000 Signed Impressions: Service Date/Time: Saturday, September 24, 2016 09:02 - CONCLUSION: Age-related findings. No acute intracranial findings. Rohit Mays MD Head CT 09/23/16 1501 Signed Impressions: Service Date/Time: Friday, September 23, 2016 16:00 - CONCLUSION: Chronic left temporal lobe calcification. No acute intracranial findings. Rohit Mays MD Chest X-Ray 09/23/16 1220 Signed Impressions: Service Date/Time: Friday, September 23, 2016 12:35 - CONCLUSION: No acute disease. Stevo Díaz MD Carotid Artery Ultrasound 09/23/16 0000 Signed Impressions: Service Date/Time: Friday, September 23, 2016 23:12 - CONCLUSION: No evidence for hemodynamically significant stenosis. Sandhya Keene MD PE at Discharge GENERAL: Well-developed well-nourished. Obese. In no acute distress. SKIN: Warm and dry. No lesions noted. HEENT: Normocephalic. Pupils equal and round. Mucous membranes pink and moist. Broken tooth on left lower jaw with some surrounding erythema, no TTP or fluctuance. CARDIOVASCULAR: Regular rate and rhythm. No murmur appreciated. RESPIRATORY: No accessory muscle use. Clear to auscultation. Breath sounds equal bilaterally. GASTROINTESTINAL: Abdomen soft, non-tender, nondistended. Bowel sounds x4. MUSCULOSKELETAL: No obvious deformities. No clubbing or cyanosis. No edema. NEUROLOGICAL: Awake and alert. Left-sided weakness. Moves right-sided extremities spontaneously. Normal speech. Strength 5/5 on the right and 23/5 on the left, at baseline. PSYCHIATRIC: Appropriate mood and affect; insight and judgment fair to normal. Pt update on day of discharge Family happy with C, which has been arranged by case management. Echocardiogram shows moderate reduction in systolic function, which upon further conversation with the family, seems to be patient's baseline, and can follow up with Dr. Flores as outpatient. The patient was noted to have signs and symptoms of left knee arthritis, recommended RICE. Hospital Course 85-year-old female admitted secondary to transient altered mental status, right- sided weakness, and inability to speak. Transient urinary symptoms, likely secondary to TIA Resolved, back to neuro baseline Reviewed: Brain MRI with age-related findings, nothing acute. Carotid ultrasound with no significant stenosis. UA negative. EEG normal. Possible borderline diabetes. -Continue Aspirin, Coumadin, statin -Neurology consulted, suspects TIA -Diabetic diet education Suspect SIRS/Sepsis Fever with mildly elevated leukocytosis. Tachycardia could be suppressed by beta susy. Possible sepsis with dental abscess. Started on Augmentin for dental abscess and recommended to follow up with a dentist as outpatient Elevated troponins, suspect secondary to CHF Reviewed: Troponin 0.25, 0.34, 0.27. EKG with NSR and LBBB, similar to previous EKG from 2015. Stress test with decreased ejection fraction, but no ischemia. Likely systolic congestive heart failure, chronic, stable Family reports a history of a "weak heart" for which patient follows with cardiology, Dr. Flores. Elevated but flat troponins. Not in exacerbation with clear chest x-ray and BNP 190. Echocardiogram with EF 3540 %. Continue carvedilol On Coumadin with elevated INR INR 3.3. Coumadin held and INR 2.3. Decreased Coumadin to 4 mg daily and follow up with PCP for INR monitoring History of spinal fusion Chronic Left hemiplegia Global weakness Bedbound [facility] for PT/OT Pt Condition on Discharge: Stable Discharge Disposition: Disch w/ Home Health Serv Discharge Time: > 30 minutes Discharge Instructions DIET: Follow Instructions for: Heart Healthy Diet, Diabetic Diet Activities you can perform: Regular-No Restrictions Follow up Referrals: Cardiology - 2 Weeks with Shorty Flores MD Neurology - 10 Days @ [facility] with Eliu Wong MD PCP Follow-up - 3-5 Days with Joe Villeda MD New Medications: Warfarin (Warfarin) 4 Mg Tab 4 MG PO DAILY Blood Clot Prevention #30 Ref 0 TAB Amoxicillin-Clavulanate (Amoxicillin-Clavulanate) 875-125 mg Tab 875 MG PO Q12HR dental infection #10 TAB Continued Medications: Aspirin DR (Aspirin Adult Low Strength) 81 Mg Tabdr 81 MG PO DAILY TAB Carvedilol (Coreg) 6.25 Mg Tab 6.25 MG PO BID #60 Ref 0 TAB Lisinopril (Lisinopril) 20 Mg Tab 20 MG PO DAILY #30 Ref 0 TAB Nifedipine ER 24 HR (Procardia XL) 30 Mg Tab 30 MG PO DAILY #30 Ref 0 TAB Polyethylene Glycol 3350 Powder (Miralax Powder) 17 Gm Powd 17 GM PO DAILY Mix and dissolve one measuring cap-ful (17 grams) in water or juice. PRN CONSTIPATION #1 Ref 0 BOTTLE Rosuvastatin (Crestor) 40 Mg Tab 40 MG PO HS Cholesterol Management #30 Ref 0 TAB Discontinued Medications: Nitrofurantoin Monohydrate Macrocrystals (Macrobid) 100 Mg Cap 100 MG PO BID Infection Days 10 Ref 0 CAP Warfarin (Coumadin) 5 Mg Tab 5 MG PO MOFR Take 1 tablet (5mg) on Monday and Monday Blood Clot Prevention #30 Ref 0 TAB Warfarin (Coumadin) 4 Mg Tab 4 MG PO SUTUWETHSA Take 1 tablet (4mg) on Monday,Monday,Monday, and Monday Prevent Blood Clot #30 Ref 0 TAB Bennie Hernandez Sep 25, 2016 17:10
[2016-09-26] MEDS ORDERED: WARFARIN SOD 5 MG TAB PO SCH (16:00)
== END 2016-09-25 16:10 | disposition home or self-care (01) ==
LOC: NEPE 12:06 → NEDA 15:04 → NEPGCP 17:28
PROVIDERS: ADMIT Hospitalist; ATTEND Hospitalist
DX: G45.9 Transient cerebral ischemic attack, unspecified (principal); R11.2 Nausea with vomiting, unspecified; R47.01 Aphasia; I69.354 Hemiplegia and hemiparesis following cerebral infarction affecting left non-dominant side; R04.0 Epistaxis; I10 Essential (primary) hypertension; E78.5 Hyperlipidemia, unspecified; R74.8 Abnormal levels of other serum enzymes; R41.82 Altered mental status, unspecified; R50.9 Fever, unspecified; D72.829 Elevated white blood cell count, unspecified; K04.7 Periapical abscess without sinus; I44.7 Left bundle-branch block, unspecified; R10.9 Unspecified abdominal pain; R55 Syncope and collapse; G93.89 Other specified disorders of brain; E78.00 Pure hypercholesterolemia, unspecified; I42.9 Cardiomyopathy, unspecified; I51.89 Other ill-defined heart diseases; R07.9 Chest pain, unspecified; I20.9 Angina pectoris, unspecified; R06.02 Shortness of breath; R94.39 Abnormal result of other cardiovascular function study; R94.31 Abnormal electrocardiogram [ECG] [EKG]; R68.84 Jaw pain; G93.40 Encephalopathy, unspecified; E66.9 Obesity, unspecified; Z74.01 Bed confinement status; Z68.25 Body mass index [BMI] 25.0-25.9, adult; Z99.3 Dependence on wheelchair; Z98.1 Arthrodesis status; Z79.899 Other long term (current) drug therapy; Z79.82 Long term (current) use of aspirin; Z79.01 Long term (current) use of anticoagulants
CPT/HCPCS: 70450; 70551; 71010; 78452; 80048; 80061; 81001; 82550; 82607; 83880; 84443; 84484; 85025; 85610; 93005; 93017; 93306; 93880; 95819; 97162; 97167; 99285; A9502; G0378; G8987; G8988; J2785

== ENCOUNTER 2017-01-03 19:11 | Observation (INO) | payer OTHER ==
[~2017-01-03] VITALS: Ht 170.2 cm; Wt 100.0 kg
[~2017-01-03 19:11] MED LIST changes: +AMOX875T2 PO; -COUM4TAB PO; -COUM5TAB PO; -MACR100C2 PO; +WARF-20 PO
[2017-01-03 19:23] VITALS: BP 140/69; PULSE 87; RESP 18; TEMP 98.7; O2SAT 97
[2017-01-03 20:18] VITALS: BP 162/72; PULSE 84; O2SAT 98
--- NOTE | 2017-01-03 20:54 | PD ---
HPI Chief Complaint: Medical Clearance Time Seen by Provider: 20:32 Travel History International Travel<30 days: No Contact w/Intl Traveler<30days: No Traveled to known affect area: No History of Present Illness HPI The patient is an 86 year old female who presents to the [facility] emergency department with a history of left leg pain that her daughter first noticed yesterday. With minor touching of the left foot, the patient reported having pain. Her daughter reports that she noticed that the foot appeared to be slightly discolored, darker than the other. She denies any trauma or fall. 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 She is essentially bedbound, only getting up for 2 hours per day into a wheelchair. Her daughter reports that she normally would reposition and keep her left side elevated to prevent swelling, however as the power has been out she has not been able to use her power bed for elevation. She has been attempting repositioning, however her left arm and left leg have gotten swollen since the power went out. The patient additionally reports that she has left knee pain. I review of systems, they deny her having any recent fevers, chills , change in appetite, cough, congestion, neck pain, chest pain, shortness of breath, abdominal pain, vomiting, diarrhea, urinary symptoms, or new neurologic symptoms. She has been moving her bowels regularly. Her last bowel movement was today. 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 The patient is chronically anticoagulated on Coumadin. Arthritis: No Asthma: No Autoimmune Disease: No Anxiety: No Depression: No Heart Rhythm Problems: No Cancer: No Cardiovascular Problems: Yes (cardiomyopathy, grade 1 diastolic dysfunction, hypercholesterolemia) High Cholesterol: Yes Chemotherapy: No Chest Pain: No Congestive Heart Failure: No COPD: No Cerebrovascular Accident: Yes Diabetes: No Diminished Hearing: No Endocrine: No Gastrointestinal Disorders: No GERD: No Genitourinary: No Headaches: No Hiatal Hernia: No Heparin Induced Thrombocytopen: No Hypertension: Yes Immune Disorder: No Implanted Vascular Access Dvce: No Kidney Stones: No Musculoskeletal: Yes Neurologic: No Psychiatric: No Reproductive: No Respiratory: No Migraines: No Radiation Therapy: No Renal Failure: No Seizures: No Sickle Cell Disease: No Sleep Apnea: No Thyroid Disease: No Ulcer: No Past Surgical History Narrative Surgical The patient's past surgical history is significant for tach fusion 3. Abdominal Surgery: No AICD: No Arteriovenous Shunt: No Cardiac Surgery: No Ear Surgery: No Endocrine Surgery: No Eye Surgery: No Genitourinary Surgery: No Gynecologic Surgery: No Insulin Pump: No Joint Replacement: No Neurologic Surgery: Yes (INJURY TO LOWER SPINE, BACK SX X 3) Oral Surgery: No Pacemaker: No Thoracic Surgery: No Other Surgery: Yes (BACK SURGERY 1968 AND S) Social History Alcohol Use: No Tobacco Use: No Substance Use: No Allergies-Medications (Allergen,Severity, Reaction): Coded Allergies: No Known Allergies (Unverified , 01/03/17) Reported Meds & Prescriptions Reported Meds & Active Scripts Active Warfarin 4 Mg Tab 4 Mg PO DAILY Amoxicillin-Clavulanate 875-125 mg Tab 875 Mg PO Q12HR Reported Miralax Powder (Polyethylene Glycol 3350 Powder) 17 Gm Powd 17 Gm PO DAILY PRN Mix and dissolve one measuring cap-ful (17 grams) in water or juice. Crestor (Rosuvastatin Calcium) 40 Mg Tab 40 Mg PO HS Procardia XL (Nifedipine) 30 Mg Tab 30 Mg PO DAILY Lisinopril 20 Mg Tab 20 Mg PO DAILY Coreg (Carvedilol) 6.25 Mg Tab 6.25 Mg PO BID Aspirin Adult Low Strength (Aspirin) 81 Mg Tabdr 81 Mg PO DAILY Review of Systems Except as stated in HPI: all other systems reviewed are Neg General / Constitutional: No: Fever Eyes: No: Visual changes HENT: No: Headaches Cardiovascular: No: Chest Pain or Discomfort Respiratory: No: Shortness of Breath Gastrointestinal: No: Abdominal Pain Genitourinary: No: Dysuria Musculoskeletal: Positive: Myalgias, Arthralgias, Edema, Pain Skin: No Rash Neurologic: Positive: Focal Abnormalities (chronic left upper and left lower extremity weakness related to a prior stroke), No: Weakness, Change in Mentation , Slurred Speech, Sensory Disturbance Psychiatric: No: Depression Endocrine: No: Polydipsia Hematologic/Lymphatic: No: Easy Bruising Physical Exam Narrative General: The patient is a well-developed well-nourished female in no acute distress Head and Neck exam: Head is normocephalic atraumatic. Eyes: EOMI, pupils are equal round and reactive to light. Nose: Midline septum with pink mucous membranes Mouth: Dentition unremarkable. Moist mucus membranes. Posterior oropharynx is not erythematous. No tonsillar hypertrophy. Uvula midline. Airway patent. Neck: No palpable lymphadenopathy. No nuchal rigidity. No thyromegaly. Cardiovascular: Regular rate and rhythm without murmurs, gallops, or rubs. No pulse deficit to the extremities and simultaneous auscultation and palpation of her radial artery. Lungs: Clear to auscultation bilaterally. No wheezes, rhonchi, or rales. Abdomen: Soft, without tenderness to palpation in all 4 quadrants of the abdomen. No guarding, rebound, or rigidity. Normal bowel sounds are audible. No tenderness on palpation of McBurney's point. Extremities: No clubbing or cyanosis, however the patient has trace pedal edema of the right foot, 1+ of the left. 2+ pulses in all 4 extremities. No calf tenderness on palpation. The patient reports having tenderness on palpation of the left anteriorly. The patient reports pain with range of motion of the left knee. The patient has no ballotable patella. No ligament laxity. The patient has pain with flexion of the knee. The patient also reports having tenderness on palpation along the dorsum of her left foot with slight reddening noted. Back: No spinous process tenderness to palpation. No costovertebral angle tenderness to palpation. Neurologic Exam: The patient on examination is at her baseline. The patient is oriented to person, place, and situation, however not time. The patient has paresis of the left upper and left lower extremity related to a prior left-sided stroke. The patient has 5 over 5 strength in the right upper and right lower extremity. Cranial nerves II through XII are intact. Skin Exam: No rash noted. Data Data Last Documented VS Vital Signs Date Time Temp Pulse Resp B/P (MAP) Pulse Ox O2 Delivery O2 Flow Rate FiO2 01/03/17 20:18 84 162/72 (102) 98 Room Air 01/03/17 19:23 98.7 18 Orders Orders Foot, Complete ([id number]) (01/03/17 20:35) Us Leg Venous Doppler (01/03/17 20:35) Complete Blood Count With Diff (01/03/17 21:29) Basic Metabolic Panel (Bmp) (01/03/17 21:29) Prothrombin Time / Inr (Pt) (01/03/17 21:29) Act Partial Throm Time (Ptt) (01/03/17 21:29) C-Reactive Protein (Crp) (01/03/17 21:29) Chest, Single Ap (01/03/17 21:29) Iv Access Insert/Monitor (01/03/17 21:29) Ecg Monitoring (01/03/17:) Oximetry (01/03/17 21:29) Knee, Complete (4vws) (01/03/17 21:29) Ice/Cold Pack (01/03/17 21:29) Cefazolin 2 Gm Premix (Ancef 2 Gm Premix (01/03/17 23:00) Enoxaparin Inj (Lovenox Inj) (01/03/17 23:00) Admit Order (Ed Use Only) (01/03/17 23:01) Cefazolin 2 Gm Premix (Ancef 2 Gm Premix (01/03/17 23:04) Place In Observation (01/03/17 ) Vital Signs (Adult) Q4H (01/03/17 23:38) Activity Bed Rest (01/03/17 23:38) Career Discovery Teacher / Telemetry .CONTINUOUS (01/03/17 23:38) Diet Heart Healthy (01/04/17 Breakfast) Sodium Chloride 0.9% Flush (Ns Flush) (01/03/17 23:45) Sodium Chloride 0.9% Flush (Ns Flush) (01/04/17 09:00) Basic Metabolic Panel (Bmp) (01/04/17 06:00) Complete Blood Count With Diff (01/04/17 06:00) Case Management Consult (01/03/17 23:38) Naloxone Inj (Narcan Inj) (01/03/17 23:45) Labs Laboratory Tests Test 01/03/17 21:45 White Blood Count 12.2 TH/MM3 Red Blood Count 4.94 MIL/MM3 Hemoglobin 12.9 GM/DL Hematocrit 40.6 % Mean Corpuscular Volume 82.2 FL Mean Corpuscular Hemoglobin 26.2 PG Mean Corpuscular Hemoglobin Concent 31.8 % Red Cell Distribution Width 16.0 % Platelet Count 243 TH/MM3 Mean Platelet Volume 8.9 FL Neutrophils (%) (Auto) 72.1 % Lymphocytes (%) (Auto) 14.2 % Monocytes (%) (Auto) 12.5 % Eosinophils (%) (Auto) 0.4 % Basophils (%) (Auto) 0.8 % Neutrophils # (Auto) 8.8 TH/MM3 Lymphocytes # (Auto) 1.7 TH/MM3 Monocytes # (Auto) 1.5 TH/MM3 Eosinophils # (Auto) 0.0 TH/MM3 Basophils # (Auto) 0.1 TH/MM3 CBC Comment DIFF FINAL Differential Comment Prothrombin Time 36.6 SEC Prothromb Time International Ratio 3.1 RATIO Activated Partial Thromboplast Time 54.2 SEC Blood Urea Nitrogen 12 MG/DL Creatinine 0.78 MG/DL Random Glucose 115 MG/DL Calcium Level 8.4 MG/DL Sodium Level 139 MEQ/L Potassium Level 3.7 MEQ/L Chloride Level 106 MEQ/L Carbon Dioxide Level 27.3 MEQ/L Anion Gap 6 MEQ/L Estimat Glomerular Filtration Rate 85 ML/MIN C-Reactive Protein 5.90 MG/DL [facility] Medical Decision Making Medical Screen Exam Complete: Yes Emergency Medical Condition: Yes Medical Record Reviewed: Yes Interpretation(s) Last Impressions Knee X-Ray 01/03/172128 Signed Impressions: Service Date/Time: Tuesday, January 03, 2017 21:58 - CONCLUSION: Probable tendinosis of distal quadriceps. Small, nonspecific but presumably reactive joint effusion. No fracture or subluxation of the left knee. Stevo Zhu MD Chest X-Ray 01/03/172128 Signed Impressions: Service Date/Time: Tuesday, January 03, 2017 21:54 - CONCLUSION: No evidence of acute cardiopulmonary disease. Stevo Zhu MD Lower Extremity Ultrasound 01/03/[id number] Signed Impressions: Service Date/Time: Tuesday, January 03, 2017 20:57 - CONCLUSION: Nonocclusive deep venous thrombus of the left posterior tibial vein. Otherwise negative. Stevo Zhu MD Foot X-Ray 01/03/[id number] Signed Impressions: Service Date/Time: Tuesday, January 03, 2017 20:56 - CONCLUSION: Osteopenia and hallux valgus. No acute abnormality demonstrated of the left foot. Stevo Zhu MD Differential Diagnosis DVT, versus cellulitis, versus arthritis, versus septic joint, versus arthritis Narrative Course During the course of the patients emergency department visit, the patients history, examination, and differential diagnosis were reviewed with the patient. The patient had IV access obtained and blood work sent for analysis. The patient was placed on a bus driver/monitor with oximetry and blood pressure monitoring. Left foot, left knee x-ray was ordered, ultrasound to rule out DVT was ordered. The patient was initially provided Tylenol for pain. An ice pack was applied. The patients laboratory studies were reviewed and remarkable for a white count 12.2, hemoglobin 12.9, platelets 243 with 72.1 neutrophils, basic metabolic profile is remarkable for a GFR of 85, glucose 1:15, C-reactive protein 5.90, given elevated white blood cell count C-reactive protein was signed suspicious for cellulitis patient was given Ancef 2 g IV. INR is 3.1 Radiology studies were reviewed and remarkable for an x-ray of the left foot that shows osteopenia with hallux valgus, no other acute abnormality. Knee x- ray reveals a probable tendinosis of distal quadriceps, small nonspecific but presumably reactive joint effusion, no fracture or subluxation. Chest x-ray shows no acute abnormality. Ultrasound of the left leg reveals a nonocclusive DVT of the left posterior tibial vein. The patient was given Lovenox 100 mg subcutaneous 1 as in spite of being on Coumadin and therapeutic she has a DVT that has developed. The patient will be admitted to the hospital for continued evaluation and treatment. The patients results were discussed with the patient, including the plan of care. I explained that further testing and/ or monitoring is indicated based on the patients history, examination, and/ or laboratory findings. Therefore, I recommended admission for additional evaluation. The patient expressed understanding and was agreeable with this plan. The patient was admitted to the hospital in stable condition and sent to a bed under the care of the [facility] service per Physician Communication Physician Communication The patient's case was discussed with Dr. Coto who did agree to admit the patient for further evaluation and treatment at this time per Diagnosis Primary Impression: Cellulitis Qualified Codes: L03.116 - Cellulitis of left lower limb Additional Impression: Left leg DVT Qualified Codes: I82.442 - Acute embolism and thrombosis of left tibial vein Admitting Information Admitting Physician Requests: Admit Kimberly Tobias MD Jan 03, 2017 20:54
--- NOTE | 2017-01-03 21:08 | RADRPT ---
EXAM DATE/TIME: 01/03/2017 20:56 [facility] COMPARISON: No previous studies available for comparison. INDICATIONS : Entire left foot pain. No known injury. MEDICAL HISTORY : Hypercholesterolemia. Hypertension. Cardiovascular disease. Cerbrovascular disease, Stroke SURGICAL HISTORY : Fusion, lumbar ENCOUNTER: Initial ACUITY: 3 months PAIN SCORE: 10/10 LOCATION: Left foot FINDINGS: Bones are diffusely osteopenic. No fracture, subluxation or bone destruction seen. Moderate hallux va lgus with osteoarthritis noted. CONCLUSION: Osteopenia and hallux valgus. No acute abnormality demonstrated of the left foot. Stevo Zhu MD on January 03, 2017 at 21:06 Board Certified Radiologist. This report was verified electronically.
--- NOTE | 2017-01-03 22:02 | RADRPT ---
EXAM DATE/TIME: 01/03/2017 20:57 [facility] COMPARISON: No previous studies available for comparison. INDICATIONS : Left foot pain. MEDICAL HISTORY : Hypercholesterolemia. Hypertension. Cerebrovascular accident. Cardiomyopathy. SURGICAL HISTORY : Back surgery. ENCOUNTER: Initial ACUITY: 2 day PAIN SCORE: 9/10 LOCATION: Left leg. TECHNIQUE: Venous ultrasound of the leg was performed from the inguinal ligament to the proximal calf. Real-eboni e, color Doppler and spectral tracing, compression and augmentation techniques were used. FINDINGS: Left posterior tibial vein is incompletely compressible and has slow flow with Doppler. Other venous tributaries of the left lower extremity are patent. CONCLUSION: Nonocclusive deep venous thrombus of the left posterior tibial vein. Otherwise negative. Stevo Zhu MD on January 03, 2017 at 22:00 Board Certified Radiologist. This report was verified electronically.
--- NOTE | 2017-01-03 22:11 | RADRPT ---
EXAM DATE/TIME: 01/03/2017 21:54 [facility] COMPARISON: CHEST SINGLE AP, September 23, 2016, 12:35. INDICATIONS : Short of breath. MEDICAL HISTORY : None. SURGICAL HISTORY : None. ENCOUNTER: Initial ACUITY: 1 day PAIN SCORE: 0/10 LOCATION: Bilateral chest FINDINGS: A single view of the chest demonstrates the lungs to be symmetrically aerated without evidence of mas s, infiltrate or effusion. The cardiomediastinal contours are unremarkable. Osseous structures are intact. CONCLUSION: No evidence of acute cardiopulmonary disease. Stevo Zhu MD on January 03, 2017 at 22:09 Board Certified Radiologist. This report was verified electronically.
--- NOTE | 2017-01-03 22:13 | RADRPT ---
EXAM DATE/TIME: 01/03/2017 21:58 [facility] COMPARISON: No previous studies available for comparison. INDICATIONS : Knee pain no known injury. MEDICAL HISTORY : None. SURGICAL HISTORY : None. ENCOUNTER: Initial ACUITY: 1 day PAIN SCORE: 0/10 LOCATION: Left knee FINDINGS: No fracture or subluxation seen of the left knee. Small joint effusion noted. Lateral view shows thic kening of the distal quadriceps; the overlying subcutaneous fat appears mildly edematous. There is mild medial compartment osteoarthritis. CONCLUSION: Probable tendinosis of distal quadriceps. Small, nonspecific but presumably reactive joint effusion. No fracture or subluxation of the left knee. Stevo Zhu MD on January 03, 2017 at 22:10 Board Certified Radiologist. This report was verified electronically.
[2017-01-03 22:38] LABS: AUTOMATED NEUTROPHIL # 8.8 TH/MM3 (1.8-7.7); BASOPHIL # 0.1 TH/MM3 (0-0.2); BASOPHIL % 0.8 % (0.0-2.0); EOSINOPHIL % 0.4 % (0.0-4.0); HEMATOCRIT 40.6 % (35.0-46.0); HEMO FLAGS DIFF FINAL; LYMPH % 14.2 % (9.0-44.0); LYMPHOCYTE # 1.7 TH/MM3 (1.0-4.8); MEAN CELL VOLUME 82.2 FL (80.0-100.0); MEAN CORPUSCULAR HEMOGLOBIN 26.2 PG (27.0-34.0); MEAN CORPUSCULAR HGB CONC 31.8 % (32.0-36.0); MONO % 12.5 % (0.0-8.0); NEUT % 72.1 % (16.0-70.0); PLATELET COUNT 243 TH/MM3 (150-450); RED BLOOD COUNT 4.94 MIL/MM3 (4.00-5.30); WHITE BLOOD COUNT 12.2 TH/MM3 (4.0-11.0)
[2017-01-03 22:44] LABS: APTT (PATIENT) 54.2 SEC (24.3-30.1); INTERNATIONAL NORMALIZED RATIO 3.1 RATIO; PROTHROMBIN TIME - PATIENT 36.6 SEC (9.8-11.6)
[2017-01-03 22:50] LABS: BICARBONATE 27.3 MEQ/L (21.0-32.0); POTASSIUM 3.7 MEQ/L (3.5-5.1)
[2017-01-03] MEDS ORDERED: ENOXAPARIN SODIUM 100 MG/ML SYRINGE SQ ONE (23:00)
[2017-01-03] MEDS ORDERED: ceFAZolin 2 GM PREMIX 50 ML IV ONE (23:00)
[2017-01-03] MEDS ORDERED: ceFAZolin 2 GM PREMIX 50 ML ONE (23:04)
[2017-01-03] MEDS ORDERED: SODIUM CHLORIDE 0.9% FLUSH 10 ML FLUSH IV FLUSH PRN (23:45)
[2017-01-03] MEDS ORDERED: NALOXONE HCL 0.4 MG/ML AMP IV PRN (23:45)
[2017-01-04] VITALS (9 sets, daily range): BP systolic 126–169; BP diastolic 58–88; PULSE 71–81; RESP 16–20; TEMP 98–99.1; O2SAT 96–99
[2017-01-04] MEDS ORDERED: LEVOFLOXACIN 750 MG PREMIX INJ 150 ML IV SCH
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
[2017-01-04] MEDS: LISINOPRIL 20 MG TAB PO SCH (09:18)
[2017-01-04] MEDS: SODIUM CHLORIDE 0.9% FLUSH 10 ML FLUSH IV FLUSH SCH ×2 (09:19→20:22)
[2017-01-04] MEDS: ASPIRIN EC 81 MG TABEC PO SCH (09:19)
[2017-01-04] MEDS: NIFEdipine 30 MG SUSTAINED RELEASE TAB PO SCH (09:19)
[2017-01-04] MEDS: CARVEDILOL 6.25 MG TAB PO SCH ×2 (09:19→20:21)
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
[2017-01-04] MEDS ORDERED: ENOXAPARIN SODIUM 100 MG/ML SYRINGE SQ SCH (11:00)
[2017-01-04 14:50] LABS: AUTOMATED NEUTROPHIL # 8.2 TH/MM3 (1.8-7.7); BASOPHIL # 0.1 TH/MM3 (0-0.2); BASOPHIL % 0.9 % (0.0-2.0); EOSINOPHIL # 0.1 TH/MM3 (0-0.4); EOSINOPHIL % 0.5 % (0.0-4.0); HEMATOCRIT 36.1 % (35.0-46.0); HEMO FLAGS DIFF FINAL; LYMPH % 16.9 % (9.0-44.0); LYMPHOCYTE # 2.1 TH/MM3 (1.0-4.8); MEAN CELL VOLUME 80.8 FL (80.0-100.0); MEAN CORPUSCULAR HGB CONC 33.4 % (32.0-36.0); MONO % 14.9 % (0.0-8.0); NEUT % 66.8 % (16.0-70.0); PLATELET COUNT 201 TH/MM3 (150-450); RED BLOOD COUNT 4.47 MIL/MM3 (4.00-5.30); RED CELL DISTRIBUTION WIDTH 15.6 % (11.6-17.2); WHITE BLOOD COUNT 12.2 TH/MM3 (4.0-11.0)
[2017-01-04 14:53] LABS: BICARBONATE 26.2 MEQ/L (21.0-32.0); POTASSIUM 3.7 MEQ/L (3.5-5.1)
[2017-01-04] MEDS: WARFARIN SOD 2.5 MG TAB PO SCH (18:29)
[2017-01-04] MEDS ORDERED: ACETAMINOPHEN 325 MG TAB PO PRN (18:30)
[2017-01-04 18:45] LABS: FERRITIN 444 NG/ML (8-252); TRANSFERRIN IRON PROFILE 124 MG/DL (200-360)
[2017-01-04 19:44] LABS: INTERNATIONAL NORMALIZED RATIO 3.2 RATIO; PROTHROMBIN TIME - PATIENT 37.5 SEC (9.8-11.6)
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
[2017-01-04] MEDS: ATORVASTATIN 80 MG TAB PO SCH (20:21)
[2017-01-05] VITALS (8 sets, daily range): BP systolic 118–184; BP diastolic 56–80; PULSE 67–81; RESP 15–20; TEMP 97.6–99; O2SAT 99–100
[2017-01-05 06:23] LABS: INTERNATIONAL NORMALIZED RATIO 2.5 RATIO; PROTHROMBIN TIME - PATIENT 28.6 SEC (9.8-11.6)
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
[2017-01-05] MEDS: LISINOPRIL 20 MG TAB PO SCH (10:04)
[2017-01-05] MEDS: CARVEDILOL 6.25 MG TAB PO SCH ×2 (10:04→20:23)
[2017-01-05] MEDS: NIFEdipine 30 MG SUSTAINED RELEASE TAB PO SCH (10:04)
[2017-01-05] MEDS: SODIUM CHLORIDE 0.9% FLUSH 10 ML FLUSH IV FLUSH SCH ×2 (10:05→20:23)
[2017-01-05] MEDS: ASPIRIN EC 81 MG TABEC PO SCH (10:05)
--- NOTE | 2017-01-05 15:33 | HHI.FF ---
Face to Face Verification Diagnosis: (1) Left leg DVT (2) CVA (cerebral infarction) Home Health Nursing Order: Medical education Signs/symptoms of disease process Medication education-adverse effect Nursing assessment with vital signs Instructions: INR checks I have seen patient Santa Dixon on 01/05/17. My clinical findings support the need for the requested home health care services because: Ltd mobility - disease progression Deconditioned w/ increased weakness Limited ability to care for self I certify that my clinical findings support that this patient is homebound because: Diz-[id number]-tfunvair bed/chair Bennie Hernandez Jan 05, 2017 15:33
--- NOTE | 2017-01-05 15:35 | PD.ONC.PN ---
Subjective Subjective Remarks Afebrile No bleeding L leg swelling somewhat improved Objective Data Date Time Temp Pulse Resp B/P (MAP) Pulse Ox O2 Delivery O2 Flow Rate FiO2 01/05/17 14:55 98.9 69 17 148/67 (94) 99 01/05/17 12:07 68 01/05/17 11:50 97.6 72 17 118/56 (76) 99 01/05/17 08:25 67 01/05/17 08:01 98.2 69 15 152/72 (98) 100 01/05/17 04:20 98.3 81 18 149/67 (94) 99 01/05/17 01:03 99.0 77 19 178/73 (108) 100 01/04/17 22:19 72 01/04/17 19:53 98.4 76 20 169/72 (104) 98 01/04/17 17:11 98.0 75 16 126/58 (80) 98 Result Diagram: 01/04/17 1410 01/04/17 1410 Laboratory Results Laboratory Tests Test 01/04/17 19:12 01/05/17 05:28 Prothrombin Time 37.5 SEC 28.6 SEC Prothromb Time International Ratio 3.2 RATIO 2.5 RATIO Administered Medications Medications (Trade) Dose Ordered Sig/Peterson Route PRN Reason Start Time Stop Time Status Last Admin Dose Admin Sodium Chloride (NS Flush) 2 ml BID IV FLUSH 01/04/17 09:00 01/05/17 10:05 Aspirin (Ecotrin Ec) 81 mg DAILY PO 01/04/17 09:00 01/05/17 10:05 Carvedilol (Coreg) 6.25 mg BID PO 01/04/17 09:00 01/05/17 10:04 Lisinopril (Prinivil) 20 mg DAILY PO 01/04/17 09:00 01/05/17 10:04 Nifedipine (Procardia Xl) 30 mg DAILY PO 01/04/17 09:00 01/05/17 10:04 Atorvastatin Calcium (Lipitor) 80 mg HS PO 01/04/17 21:00 01/04/17 20:21 Objective Remarks GENERAL: Elderly female, resting in bed in no acute distress. SKIN: Warm and dry. HEAD: Normocephalic. EYES: No scleral icterus. No injection or drainage. NECK: Supple, trachea midline. No JVD or lymphadenopathy. CARDIOVASCULAR: Regular rate and rhythm without murmurs. RESPIRATORY: Breath sounds equal bilaterally. No accessory muscle use. GASTROINTESTINAL: Abdomen soft, non-tender, nondistended. EXTREMITIES: No cyanosis. LLE edema NEUROLOGICAL: No obvious focal deficit. Awake, alert, and oriented x3. Assessment/Plan Problem List: (1) Left leg DVT ICD Codes: I82.402 - Acute embolism and thrombosis of unspecified deep veins of left lower extremity Status: Acute Plan: -- Has been on coumadin since prior CVA in 2014 -- LLE DVT diagnosed this admission; this may have been there for quite some time as the pt is immobile at home -- On coumadin 2.5mg po daily Assessment 86 y/o female admitted with L leg pain found to have a DVT Plan 1. Continue Coumadin 2. Monitor for bleeding 3. Monitor CBC 4. OK for discharge from hematology standpoint. Attending Statement The exam, history, and the medical decision-making described in the above note were completed with the assistance of the mid-level provider. I reviewed and agree with the findings presented. I attest that I had a [id number] encounter with the patient on the same day, and personally performed and documented my assessment and findings in the medical record. Pt seen and examined. L leg swelling decreased. L knee swelling/effusion resolved. Cont on Coumadin, suggest to increase dose, pt was previously on 4mg. Pt/INR titrated by home machine and neurologist. Will sign off. Reconsult as needed. Problem Qualifiers (1) Left leg DVT: Qualified Codes: I82.442 - Acute embolism and thrombosis of left tibial vein Bertha Barker Jan 05, 2017 15:35 Leanna Guzman MD Jan 05, 2017 18:45
[2017-01-05] MEDS: WARFARIN SOD 2.5 MG TAB PO SCH (17:04)
[2017-01-05] MEDS: ATORVASTATIN 80 MG TAB PO SCH (20:23)
[2017-01-06] VITALS: BP 194/86; PULSE 75; RESP 18; TEMP 99; O2SAT 98
[2017-01-06 03:43] VITALS: PULSE 93
[2017-01-06 05:00] VITALS: BP 193/78; PULSE 72; RESP 18; TEMP 97.8; O2SAT 100
[2017-01-06 07:46] VITALS: BP 184/74; PULSE 77; RESP 19; TEMP 98.2; O2SAT 100
[2017-01-06] MEDS ORDERED: COUM3TAB PO (07:46)
[2017-01-06] MEDS: SODIUM CHLORIDE 0.9% FLUSH 10 ML FLUSH IV FLUSH SCH (07:56)
[2017-01-06] MEDS: ASPIRIN EC 81 MG TABEC PO SCH (07:57)
[2017-01-06] MEDS: CARVEDILOL 6.25 MG TAB PO SCH (07:57)
[2017-01-06] MEDS: NIFEdipine 30 MG SUSTAINED RELEASE TAB PO SCH (07:57)
[2017-01-06] MEDS: LISINOPRIL 20 MG TAB PO SCH (07:57)
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
[2017-01-06 10:22] VITALS: BP 132/63
[2017-01-06 10:54] LABS: INTERNATIONAL NORMALIZED RATIO 1.9 RATIO; PROTHROMBIN TIME - PATIENT 21.4 SEC (9.8-11.6)
[2017-01-06 11:45] VITALS: BP 134/64; PULSE 74; RESP 18; TEMP 98.4; O2SAT 100
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
[2017-01-06] MEDS ORDERED: WARFARIN SOD 3 MG TAB PO SCH (16:00)
== END 2017-01-06 16:21 ==
LOC: NEPC 19:11 → OBSVTOIN 23:05 → UNDOADMIN 23:05 → NEDA 23:05 → INTOOBSV 23:05 → NEDA 23:40 → INTOOBSV 23:40 → NEPHCDU 01-04 01:04
PROVIDERS: ADMIT Hospitalist; ATTEND Hospitalist
DX: I82.442 Acute embolism and thrombosis of left tibial vein (principal); L03.116 Cellulitis of left lower limb; I69.354 Hemiplegia and hemiparesis following cerebral infarction affecting left non-dominant side; I50.9 Heart failure, unspecified; I11.0 Hypertensive heart disease with heart failure; I42.9 Cardiomyopathy, unspecified; E78.00 Pure hypercholesterolemia, unspecified; I87.2 Venous insufficiency (chronic) (peripheral); Z79.01 Long term (current) use of anticoagulants; Z74.01 Bed confinement status
CPT/HCPCS: 71010; 73564; 73630; 80048; 82728; 83540; 83550; 85025; 85610; 85730; 86140; 93971; 96365; 96367; 96372; 99285; G0378; J0690; J1650; J1956